=== PATIENT | male | born 1955 | race Caucasian/White ===

== ENCOUNTER 2016-12-13 02:35 | Emergency (ER) | payer MEDICAID ==
[~2016-12-13] VITALS: Ht 175.3 cm; Wt 83.0 kg
[~2016-12-13 02:35] MED LIST: ACID1TAB7 PO; DAPT500V6 IV; DOCU-30 PO; DOXY100T PO; FOLI-17 PO; HYDR-3307 PO; LIBRIUM; LOSA25TA2 PO; METO25TA35 PO; METR500T PO; MULT-484 PO; NICO1PAT4 TD; OXYC10TA32 PO; OXYC5TAB3 PO; PANT40TA5 PO; SODI1TAB PO; THIA100T6 PO; VENL37.58 PO; VENL75CA PO
[2016-12-13 02:37] VITALS: BP 133/83
== END 2016-12-13 03:11 | disposition home or self-care (01) ==
LOC: ED 03:05
DX: L03.115 Cellulitis of right lower limb (principal); F10.220 Alcohol dependence with intoxication, uncomplicated; Y90.9 Presence of alcohol in blood, level not specified; F10.20 Alcohol dependence, uncomplicated; I10 Essential (primary) hypertension
CPT/HCPCS: 99283

== ENCOUNTER 2017-01-19 07:29 | Inpatient (IN) | payer MEDICAID ==
[~2017-01-19] VITALS: Ht 177.8 cm; Wt 77.7 kg
[2017-01-19] MEDS ORDERED: PROPOFOL 10 MG/ML, 100ML IV ONE (12:00)
[2017-01-19] MEDS ORDERED: ETOMIDATE 40 MG/20 ML ONE (12:00)
[2017-01-19] MEDS ORDERED: SUCCINYLCHOLINE 20 MG/ML, 10ML ONE (12:00)
[2017-01-19 15:43] LABS: ASPARTATE AMINO TRANSFERASE 32 U/L (15-37); BLOOD UREA NITROGEN 13 mg/dL (7-18)
[2017-01-19 15:50] LABS: ACETAMINOPHEN < 2 mcg/mL (10-30)
[2017-01-19] MEDS ORDERED: LORazepam 2 MG/ML, 1ML IVPush PRN (17:30)
[2017-01-19] MEDS ORDERED: POLYETHYLENE GLYCOL 17 GM PACKET PO PRN (17:30)
[2017-01-19] MEDS ORDERED: FENTANYL PF 100 MCG/2ML ONE (17:55)
[2017-01-19] MEDS ORDERED: SUCCINYLCHOLINE 20 MG/ML, 10ML IVPush ONE (18:00)
[2017-01-19] MEDS ORDERED: ETOMIDATE 20 MG/10 ML IVPush ONE (18:00)
[2017-01-19] MEDS ORDERED: SODIUM CHLORIDE 0.9%, 500ML IVBOLUS ONE (18:00)
[2017-01-19] MEDS ORDERED: FENTANYL PF 100 MCG/2ML IVPush ONE (18:00)
[2017-01-19] MEDS ORDERED: MANNITOL PMX 20% 500 ML ONE (18:15)
[2017-01-19] MEDS ORDERED: BACITRACIN 50,000 UNIT ONE (18:15)
[2017-01-19] MEDS ORDERED: BUPIVACAINE/PF-EPI 0.5% 1:200K ONE (18:15)
[2017-01-19] MEDS ORDERED: THROMBIN 20,000 UNIT VIAL TP ONE (18:15)
[2017-01-19] MEDS: SODIUM CHLORIDE 0.9% 1,000 ML IV SCH ×2 (18:30→22:07)
[2017-01-19] MEDS ORDERED: SENNOSIDES 8.8 MG/5 ML ORAL SOL NG PRN (18:30)
[2017-01-19] MEDS ORDERED: BISACODYL 10 MG SUPP PR PRN (18:30)
[2017-01-19] MEDS ORDERED: LACTULOSE 20 GM/30 ML UDC NG PRN (18:30)
[2017-01-19] MEDS ORDERED: LIDOCAINE-MPF 1%, 2ML ENDO PRN (18:30)
[2017-01-19] MEDS ORDERED: PHARMACY MAY ADJ FOR RENAL FX MC SCH (18:30)
[2017-01-19] MEDS ORDERED: SENNA/DOCUSATE TABLET NG PRN (18:30)
[2017-01-19] MEDS ORDERED: FENTANYL PF 250 MCG/5ML ONE (18:31)
[2017-01-19] MEDS ORDERED: MIDAZOLAM 1 MG/ML, 2ML ONE (18:31)
[2017-01-19 18:34] LABS: IS PT STATUS REG ER OR PRE ER? YES
[2017-01-19] MEDS ORDERED: CEFAZOLIN 1,000 MG ONE (18:47)
[2017-01-19] MEDS ORDERED: PHENYLEPHRINE 10 MG/ML ONE (18:47)
[2017-01-19] MEDS ORDERED: ROCURONIUM 10 MG/ML ONE (18:47)
[2017-01-19] MEDS ORDERED: EPHEDRINE 50 MG/ML, 1ML ONE (18:47)
[2017-01-19] MEDS ORDERED: ESMOLOL 100 MG/10 ML ONE (18:47)
[2017-01-19] MEDS ORDERED: PROPOFOL 10 MG/ML, 20ML ONE (18:47)
[2017-01-19] MEDS: PROPOFOL 100 ML IV SCH ×2 (19:05→19:06)
[2017-01-19] MEDS: FENTANYL PF 100 MCG/2ML IVPush PRN (21:53)
[2017-01-19] MEDS: FAMOTIDINE 20 MG/2 ML IV SCH (21:55)
[2017-01-19] MEDS: ALBUTEROL/IPRATROPIUM 2.5MG/0.5MG, 3 ML INLINE SCH (22:21)
[2017-01-19 22:33] LABS: ABG COLLECTION SITE ARTERIAL LINE
[2017-01-20] MEDS: POTASSIUM CHLORIDE 20 MEQ, MAGNESIUM SULFATE 2 GM, THIAMINE 100 MG, MVI ADULT 10 ML, FO... IV SCH ×2 (00:13→22:30)
[2017-01-20] MEDS: CEFAZOLIN PMX 2GM/50ML 50 ML IVPB SCH ×3 (00:14→16:20)
[2017-01-20] MEDS: PROPOFOL 100 ML IV PRN ×4 (00:35→19:00)
[2017-01-20] MEDS: FENTANYL PF 100 MCG/2ML IVPush PRN ×4 (00:41→07:32)
[2017-01-20 00:53] LABS: IS PT STATUS REG ER OR PRE ER? NO
[2017-01-20] MEDS: SODIUM CHLORIDE 0.9% 1,000 ML IV SCH ×4 (01:10→22:34)
[2017-01-20] MEDS: ALBUTEROL/IPRATROPIUM 2.5MG/0.5MG, 3 ML INLINE SCH ×6 (01:55→21:48)
[2017-01-20 02:07] VITALS: BP 173/72
[2017-01-20 03:53] LABS: ABG COLLECTION SITE ARTERIAL LINE
[2017-01-20 04:00] VITALS: BP 117/57
[2017-01-20 04:08] LABS: ASPARTATE AMINO TRANSFERASE 27 U/L (15-37); BLOOD UREA NITROGEN 15 mg/dL (7-18)
[2017-01-20] MEDS: FAMOTIDINE 20 MG/2 ML IV SCH ×2 (06:21→18:44)
[2017-01-20] MEDS ORDERED: MAGNESIUM SULFATE PMX 4GM/100M 100 ML IV ONE (07:00)
[2017-01-20] MEDS ORDERED: PANTOPRAZOLE 40 MG IV IVPush SCH (07:30)
[2017-01-20] MEDS ORDERED: DIAZEPAM 5 MG/ML, 2ML IVPush PRN (08:30)
[2017-01-20] MEDS: ENALAPRILAT 1.25 MG/ML, 2ML IVPush PRN (08:39)
[2017-01-20] MEDS: SENNA/DOCUSATE TABLET PO SCH (09:00)
[2017-01-20] MEDS: LEVETIRACETAM 500 MG in SODIUM CHLORIDE 0.9% 100 ML IV SCH ×2 (09:26→21:33)
[2017-01-20] MEDS: FENTANYL PF 2,500 MCG in SODIUM CHLORIDE 0.9% 200 ML IV PRN (11:10)
[2017-01-20] MEDS: DIAZEPAM 5 MG/ML, 2ML IVPush SCH ×3 (14:50→21:34)
[2017-01-20] MEDS: QUETIAPINE 25MG TABLET PO SCH ×2 (16:19→21:33)
[2017-01-21] MEDS: ALBUTEROL/IPRATROPIUM 2.5MG/0.5MG, 3 ML INLINE SCH ×6 (01:52→21:30)
[2017-01-21] MEDS: DIAZEPAM 5 MG/ML, 2ML IVPush SCH ×5 (03:07→23:15)
[2017-01-21 04:10] VITALS: BP 126/72
[2017-01-21 04:17] LABS: ABG COLLECTION SITE NOT DOCUMENTED
[2017-01-21 04:30] LABS: BLOOD UREA NITROGEN 15 mg/dL (7-18)
[2017-01-21] MEDS: FAMOTIDINE 20 MG/2 ML IV SCH ×2 (05:59→18:18)
[2017-01-21] MEDS: SODIUM CHLORIDE 0.9% 1,000 ML IV SCH ×2 (07:52→18:18)
[2017-01-21] MEDS: AMPICILLIN/SULBACTAM 3 GM in SODIUM CHLORIDE 0.9% 100 ML IV SCH ×3 (08:40→20:39)
[2017-01-21] MEDS: LOSARTAN 25MG TABLET PO SCH ×2 (08:40→20:41)
[2017-01-21] MEDS: METOPROLOL TARTRATE 25 MG TABLET PO SCH (08:40)
[2017-01-21] MEDS: SENNA/DOCUSATE TABLET PO SCH (08:40)
[2017-01-21] MEDS: QUETIAPINE 25MG TABLET PO SCH ×3 (08:40→20:41)
[2017-01-21] MEDS: LEVETIRACETAM 500 MG in SODIUM CHLORIDE 0.9% 100 ML IV SCH ×2 (09:39→22:41)
[2017-01-21] MEDS: PROPOFOL 100 ML IV PRN ×2 (14:31→22:42)
[2017-01-21] MEDS: POTASSIUM CHLORIDE 20 MEQ, MAGNESIUM SULFATE 2 GM, THIAMINE 100 MG, MVI ADULT 10 ML, FO... IV SCH (20:41)
[2017-01-22] MEDS: ALBUTEROL/IPRATROPIUM 2.5MG/0.5MG, 3 ML INLINE SCH ×6 (01:35→21:44)
[2017-01-22] MEDS: AMPICILLIN/SULBACTAM 3 GM in SODIUM CHLORIDE 0.9% 100 ML IV SCH ×4 (02:17→21:14)
[2017-01-22] MEDS: SODIUM CHLORIDE 0.9% 1,000 ML IV SCH ×3 (02:21→21:14)
[2017-01-22 02:57] LABS: ABG COLLECTION SITE RIGHT RADIAL
[2017-01-22 02:58] LABS: COLLATERAL CIRCULATION TESTING NORMAL
[2017-01-22 03:09] LABS: BLOOD UREA NITROGEN 10 mg/dL (7-18)
[2017-01-22 04:00] VITALS: BP 138/67
[2017-01-22] MEDS: DIAZEPAM 5 MG/ML, 2ML IVPush SCH ×5 (04:18→22:37)
[2017-01-22] MEDS: PROPOFOL 100 ML IV PRN ×3 (05:18→21:50)
[2017-01-22] MEDS: FAMOTIDINE 20 MG/2 ML IV SCH ×2 (05:18→18:24)
[2017-01-22] MEDS ORDERED: POTASSIUM CHLORIDE 10% 40 MEQ/30 ML UDC PO ONE (07:00)
[2017-01-22] MEDS: LEVETIRACETAM 500 MG in SODIUM CHLORIDE 0.9% 100 ML IV SCH ×2 (10:18→21:50)
[2017-01-22] MEDS: METOPROLOL TARTRATE 25 MG TABLET PO SCH (10:18)
[2017-01-22] MEDS: LOSARTAN 25MG TABLET PO SCH ×2 (10:19→21:15)
[2017-01-22] MEDS: SENNA/DOCUSATE TABLET PO SCH (10:19)
[2017-01-22] MEDS: QUETIAPINE 25MG TABLET PO SCH ×3 (10:19→21:18)
[2017-01-22] MEDS: FENTANYL PF 2,500 MCG in SODIUM CHLORIDE 0.9% 200 ML IV PRN (21:14)
[2017-01-22] MEDS: POTASSIUM CHLORIDE 20 MEQ, MAGNESIUM SULFATE 2 GM, THIAMINE 100 MG, MVI ADULT 10 ML, FO... IV SCH (22:37)
[2017-01-23] MEDS: ALBUTEROL/IPRATROPIUM 2.5MG/0.5MG, 3 ML INLINE SCH ×7 (01:42→21:50)
[2017-01-23] MEDS: DIAZEPAM 5 MG/ML, 2ML IVPush SCH ×6 (02:00→23:15)
[2017-01-23] MEDS: SODIUM CHLORIDE 0.9% 1,000 ML IV SCH ×3 (03:00→23:00)
[2017-01-23] MEDS: AMPICILLIN/SULBACTAM 3 GM in SODIUM CHLORIDE 0.9% 100 ML IV SCH ×4 (03:07→21:43)
[2017-01-23 04:31] LABS: ABG COLLECTION SITE RIGHT BRACHIAL
[2017-01-23 04:35] VITALS: BP 114/64
[2017-01-23 04:48] LABS: BLOOD UREA NITROGEN 8 mg/dL (7-18)
[2017-01-23] MEDS: FAMOTIDINE 20 MG/2 ML IV SCH ×2 (06:24→21:43)
[2017-01-23] MEDS ORDERED: MAGNESIUM SULFATE PMX 2GM/50ML 50 ML IV ONE (07:00)
[2017-01-23] MEDS ORDERED: POTASSIUM PHOSPHATE 44 MEQ in SODIUM CHLORIDE 0.9% 500 ML IV ONE (08:30)
[2017-01-23] MEDS: POTASSIUM CHLORIDE 20 MEQ TAB.ER.PRT PO SCH ×2 (09:00→23:15)
[2017-01-23] MEDS: METOPROLOL TARTRATE 25 MG TABLET PO SCH (10:02)
[2017-01-23] MEDS: QUETIAPINE 25MG TABLET PO SCH ×3 (10:02→21:44)
[2017-01-23] MEDS: SENNA/DOCUSATE TABLET PO SCH (10:02)
[2017-01-23] MEDS: LOSARTAN 25MG TABLET PO SCH ×2 (10:02→21:43)
[2017-01-23] MEDS: LEVETIRACETAM 500 MG in SODIUM CHLORIDE 0.9% 100 ML IV SCH ×2 (10:03→21:42)
[2017-01-23] MEDS: PROPOFOL 100 ML IV PRN ×2 (10:21→18:01)
[2017-01-23] MEDS: ENALAPRILAT 1.25 MG/ML, 2ML IVPush PRN (13:07)
[2017-01-23] MEDS ORDERED: FUROSEMIDE 20 MG/2 ML IV ONE (14:00)
[2017-01-23] MEDS: POTASSIUM CHLORIDE 20 MEQ, MAGNESIUM SULFATE 2 GM, THIAMINE 100 MG, MVI ADULT 10 ML, FO... IV SCH (23:15)
[2017-01-24] MEDS: ALBUTEROL/IPRATROPIUM 2.5MG/0.5MG, 3 ML INLINE SCH ×2 (02:31→10:30)
[2017-01-24] MEDS: AMPICILLIN/SULBACTAM 3 GM in SODIUM CHLORIDE 0.9% 100 ML IV SCH ×4 (03:28→19:51)
[2017-01-24] MEDS: DIAZEPAM 5 MG/ML, 2ML IVPush SCH ×4 (03:29→17:32)
[2017-01-24 04:58] VITALS: BP 114/59
[2017-01-24 05:07] LABS: BLOOD UREA NITROGEN 11 mg/dL (7-18)
[2017-01-24 05:18] LABS: ABG COLLECTION SITE RIGHT RADIAL; COLLATERAL CIRCULATION TESTING NORMAL
[2017-01-24] MEDS: SODIUM CHLORIDE 0.9% 1,000 ML IV SCH (06:04)
[2017-01-24] MEDS ORDERED: SODIUM CHLORIDE 0.9% 1,000 ML IV SCH (08:30)
[2017-01-24] MEDS ORDERED: POTASSIUM CHLORIDE 20 MEQ TAB.ER.PRT PO SCH (09:00)
[2017-01-24] MEDS: POTASSIUM CHLORIDE 20 MEQ PACKET PO SCH ×2 (09:20→21:00)
[2017-01-24] MEDS: hydrALAzine 20 MG/ML, 1ML IV PRN ×3 (09:20→18:43)
[2017-01-24] MEDS: FAMOTIDINE 20 MG/2 ML IV SCH ×2 (09:20→21:07)
[2017-01-24] MEDS: LEVETIRACETAM 500 MG in SODIUM CHLORIDE 0.9% 100 ML IV SCH ×2 (09:23→21:07)
[2017-01-24] MEDS: LOSARTAN 25MG TABLET PO SCH ×2 (09:23→21:00)
[2017-01-24] MEDS: QUETIAPINE 25MG TABLET PO SCH ×3 (09:23→21:00)
[2017-01-24] MEDS: METOPROLOL TARTRATE 25 MG TABLET PO SCH (09:23)
[2017-01-24] MEDS: SENNA/DOCUSATE TABLET PO SCH (09:23)
[2017-01-24] MEDS: ENALAPRILAT 1.25 MG/ML, 2ML IVPush PRN ×3 (11:20→19:51)
[2017-01-24] MEDS ORDERED: ALBUTEROL/IPRATROPIUM 2.5MG/0.5MG, 3 ML NPPB PRN (11:30)
[2017-01-24] MEDS: MORPHINE SULFATE 4 MG/ML, 1ML IVPush PRN ×2 (13:14→15:25)
[2017-01-24] MEDS: ALBUTEROL/IPRATROPIUM 2.5MG/0.5MG, 3 ML NPPB SCH ×3 (14:20→21:47)
[2017-01-24] MEDS ORDERED: FUROSEMIDE 20 MG/2 ML ONE (15:16)
[2017-01-24] MEDS ORDERED: FUROSEMIDE 20 MG/2 ML IV ONE (15:30)
[2017-01-24] MEDS ORDERED: METOPROLOL 1 MG/ML, 5ML ONE (20:34)
[2017-01-24] MEDS ORDERED: METOPROLOL 1 MG/ML, 5ML IVPush STA (20:39)
[2017-01-24] MEDS: POTASSIUM CHLORIDE 20 MEQ, MAGNESIUM SULFATE 2 GM, THIAMINE 100 MG, MVI ADULT 10 ML, FO... IV SCH (23:02)
[2017-01-25] MEDS: DIAZEPAM 5 MG/ML, 2ML IVPush SCH ×2 (00:49→05:22)
[2017-01-25] MEDS: AMPICILLIN/SULBACTAM 3 GM in SODIUM CHLORIDE 0.9% 100 ML IV SCH ×4 (02:16→19:32)
[2017-01-25] MEDS: FENTANYL PF 100 MCG/2ML IVPush PRN ×2 (02:16→09:35)
[2017-01-25] MEDS: ALBUTEROL/IPRATROPIUM 2.5MG/0.5MG, 3 ML NPPB SCH ×5 (02:30→20:00)
[2017-01-25 04:25] LABS: ABG COLLECTION SITE RIGHT RADIAL; COLLATERAL CIRCULATION TESTING NORMAL
[2017-01-25 04:26] VITALS: BP 160/95
[2017-01-25 04:36] LABS: BLOOD UREA NITROGEN 11 mg/dL (7-18)
[2017-01-25 04:55] LABS: DIFF TOTAL CELLS COUNTED 100 CELL DIFF
[2017-01-25 04:57] LABS: VERIFY COUNTS? YES
[2017-01-25 04:58] LABS: ANISOCYTOSIS 1+
[2017-01-25] MEDS: POTASSIUM CHLORIDE 10% 40 MEQ/30 ML UDC PO SCH ×2 (09:00→21:00)
[2017-01-25] MEDS: METOPROLOL TARTRATE 25 MG TABLET PO SCH (09:00)
[2017-01-25] MEDS: LOSARTAN 25MG TABLET PO SCH ×2 (09:00→21:00)
[2017-01-25] MEDS: QUETIAPINE 25MG TABLET PO SCH ×3 (09:00→21:00)
[2017-01-25] MEDS: SENNA/DOCUSATE TABLET PO SCH (09:00)
[2017-01-25] MEDS: LEVETIRACETAM 500 MG in SODIUM CHLORIDE 0.9% 100 ML IV SCH ×2 (09:24→21:08)
[2017-01-25] MEDS: hydrALAzine 20 MG/ML, 1ML IV PRN (09:54)
[2017-01-25] MEDS: ENALAPRILAT 1.25 MG/ML, 2ML IVPush PRN (11:49)
[2017-01-25] MEDS ORDERED: MIDAZOLAM 1 MG/ML, 2ML ONE (12:23)
[2017-01-25] MEDS ORDERED: MIDAZOLAM 1 MG/ML, 2ML IVPush ONE (12:30)
[2017-01-25] MEDS: FAMOTIDINE 20 MG/2 ML IV SCH ×2 (13:44→21:08)
[2017-01-25] MEDS: POTASSIUM CHLORIDE 20 MEQ, MAGNESIUM SULFATE 2 GM, THIAMINE 100 MG, MVI ADULT 10 ML, FO... IV SCH (22:49)
[2017-01-26] MEDS: AMPICILLIN/SULBACTAM 3 GM in SODIUM CHLORIDE 0.9% 100 ML IV SCH ×4 (02:21→19:34)
[2017-01-26] MEDS: FENTANYL PF 100 MCG/2ML IVPush PRN (02:41)
[2017-01-26 04:51] VITALS: BP 174/94
[2017-01-26 05:16] LABS: BLOOD UREA NITROGEN 19 mg/dL (7-18)
[2017-01-26] MEDS: ALBUTEROL/IPRATROPIUM 2.5MG/0.5MG, 3 ML NPPB SCH ×4 (06:50→19:43)
[2017-01-26] MEDS: LOSARTAN 25MG TABLET PO SCH ×2 (09:00→20:47)
[2017-01-26] MEDS: SENNA/DOCUSATE TABLET PO SCH (09:00)
[2017-01-26] MEDS: METOPROLOL TARTRATE 25 MG TABLET PO SCH (09:00)
[2017-01-26] MEDS: QUETIAPINE 25MG TABLET PO SCH ×3 (09:00→20:47)
[2017-01-26] MEDS: FAMOTIDINE 20 MG/2 ML IV SCH ×2 (09:31→20:46)
[2017-01-26] MEDS: LEVETIRACETAM 500 MG in SODIUM CHLORIDE 0.9% 100 ML IV SCH ×2 (09:31→20:46)
[2017-01-26] MEDS: hydrALAzine 20 MG/ML, 1ML IV PRN (18:21)
[2017-01-26] MEDS: POTASSIUM CHLORIDE 20 MEQ, MAGNESIUM SULFATE 2 GM, THIAMINE 100 MG, MVI ADULT 10 ML, FO... IV SCH (23:07)
[2017-01-27] MEDS: AMPICILLIN/SULBACTAM 3 GM in SODIUM CHLORIDE 0.9% 100 ML IV SCH ×4 (01:46→21:18)
[2017-01-27] MEDS: FENTANYL PF 100 MCG/2ML IVPush PRN (02:29)
[2017-01-27] MEDS: ENALAPRILAT 1.25 MG/ML, 2ML IVPush PRN ×4 (04:06→21:17)
[2017-01-27 04:56] LABS: ASPARTATE AMINO TRANSFERASE 104 U/L (15-37); BLOOD UREA NITROGEN 20 mg/dL (7-18)
[2017-01-27 05:46] VITALS: BP 154/72
[2017-01-27] MEDS: hydrALAzine 20 MG/ML, 1ML IV PRN ×2 (06:05→21:24)
[2017-01-27] MEDS: ALBUTEROL/IPRATROPIUM 2.5MG/0.5MG, 3 ML NPPB SCH ×4 (07:00→20:00)
[2017-01-27] MEDS: QUETIAPINE 25MG TABLET PO SCH ×3 (09:00→20:37)
[2017-01-27] MEDS: LOSARTAN 25MG TABLET PO SCH ×2 (09:00→20:37)
[2017-01-27] MEDS: SENNA/DOCUSATE TABLET PO SCH (09:00)
[2017-01-27] MEDS: METOPROLOL TARTRATE 25 MG TABLET PO SCH (09:00)
[2017-01-27] MEDS: FAMOTIDINE 20 MG/2 ML IV SCH ×2 (09:55→21:17)
[2017-01-27] MEDS: LEVETIRACETAM 500 MG in SODIUM CHLORIDE 0.9% 100 ML IV SCH ×2 (09:55→21:18)
[2017-01-27] MEDS ORDERED: BUPIVACAINE/PF-EPI 0.5% 1:200K ONE (14:31)
[2017-01-27] MEDS ORDERED: FENTANYL PF 250 MCG/5ML ONE (15:01)
[2017-01-27] MEDS ORDERED: LABETALOL 5MG/ML, 20ML IV PRN (15:30)
[2017-01-27] MEDS ORDERED: FENTANYL PF 100 MCG/2ML IV PRN (15:30)
[2017-01-27] MEDS ORDERED: HYDROmorphone 1 MG/ML, 1ML IV PRN (15:30)
[2017-01-27] MEDS ORDERED: hydrALAzine 20 MG/ML, 1ML IV PRN (15:30)
[2017-01-27] MEDS ORDERED: OXYcodone 5 MG/5 ML ORAL.SOL UDC PO PRN (15:30)
[2017-01-27] MEDS ORDERED: ONDANSETRON 2MG/ML, 2ML IVPush PRN (15:30)
[2017-01-27] MEDS ORDERED: PROMETHAZINE 25 MG/ML, 1ML IV PRN (15:30)
[2017-01-27] MEDS: POTASSIUM CHLORIDE 20 MEQ, MAGNESIUM SULFATE 2 GM, THIAMINE 100 MG, MVI ADULT 10 ML, FO... IV SCH (21:00)
[2017-01-28] MEDS: ENALAPRILAT 1.25 MG/ML, 2ML IVPush PRN (02:22)
[2017-01-28] MEDS: AMPICILLIN/SULBACTAM 3 GM in SODIUM CHLORIDE 0.9% 100 ML IV SCH ×4 (02:22→20:06)
[2017-01-28] MEDS: hydrALAzine 20 MG/ML, 1ML IV PRN ×3 (02:47→18:42)
[2017-01-28 06:50] LABS: ASPARTATE AMINO TRANSFERASE 57 U/L (15-37); BLOOD UREA NITROGEN 17 mg/dL (7-18)
[2017-01-28] MEDS: ALBUTEROL/IPRATROPIUM 2.5MG/0.5MG, 3 ML NPPB SCH ×4 (07:50→21:53)
[2017-01-28] MEDS: METOPROLOL TARTRATE 25 MG TABLET PO SCH (09:00)
[2017-01-28] MEDS: LOSARTAN 25MG TABLET PO SCH ×2 (09:00→20:20)
[2017-01-28] MEDS: QUETIAPINE 25MG TABLET PO SCH ×3 (09:00→20:21)
[2017-01-28] MEDS: SENNA/DOCUSATE TABLET PO SCH (09:00)
[2017-01-28] MEDS: FAMOTIDINE 20 MG/2 ML IV SCH ×2 (09:58→21:09)
[2017-01-28] MEDS: LEVETIRACETAM 500 MG in SODIUM CHLORIDE 0.9% 100 ML IV SCH ×2 (09:58→20:54)
[2017-01-28] MEDS: SODIUM BICARBONATE 4.2%, 5ML NPPB SCH ×3 (12:08→21:53)
[2017-01-28] MEDS: FENTANYL PF 100 MCG/2ML IVPush PRN (20:20)
[2017-01-28] MEDS: POTASSIUM CHLORIDE 20 MEQ, MAGNESIUM SULFATE 2 GM, THIAMINE 100 MG, MVI ADULT 10 ML, FO... IV SCH (21:49)
[2017-01-29] MEDS: FENTANYL PF 100 MCG/2ML IVPush PRN (01:05)
[2017-01-29] MEDS: AMPICILLIN/SULBACTAM 3 GM in SODIUM CHLORIDE 0.9% 100 ML IV SCH ×4 (03:26→20:43)
[2017-01-29 04:00] VITALS: BP 164/93
[2017-01-29] MEDS: ENALAPRILAT 1.25 MG/ML, 2ML IVPush PRN (04:06)
[2017-01-29 06:11] LABS: BLOOD UREA NITROGEN 17 mg/dL (7-18)
[2017-01-29] MEDS: SODIUM BICARBONATE 4.2%, 5ML NPPB SCH ×4 (06:50→19:58)
[2017-01-29] MEDS: ALBUTEROL/IPRATROPIUM 2.5MG/0.5MG, 3 ML NPPB SCH ×4 (06:50→19:58)
[2017-01-29] MEDS: METOPROLOL TARTRATE 25 MG TABLET PO SCH ×2 (09:26→20:44)
[2017-01-29] MEDS: QUETIAPINE 25MG TABLET PO SCH ×3 (09:26→20:43)
[2017-01-29] MEDS: LOSARTAN 25MG TABLET PO SCH ×2 (09:26→20:43)
[2017-01-29] MEDS: SENNA/DOCUSATE TABLET PO SCH (09:26)
[2017-01-29] MEDS: FAMOTIDINE 20 MG/2 ML IV SCH ×2 (09:27→20:43)
[2017-01-29] MEDS: LEVETIRACETAM 500 MG in SODIUM CHLORIDE 0.9% 100 ML IV SCH (09:27)
[2017-01-29] MEDS: hydrALAzine 20 MG/ML, 1ML IV PRN (12:08)
[2017-01-29] MEDS: OXYcodone IR 5MG TABLET PO PRN (14:39)
[2017-01-29] MEDS: THIAMINE 100MG TABLET PO SCH (16:13)
[2017-01-29] MEDS: FOLIC ACID 1 MG TABLET PO SCH (16:13)
[2017-01-29] MEDS: HEPARIN 5,000 UNITS/ML, 1ML SQ SCH ×2 (16:14→20:59)
[2017-01-29] MEDS: LEVETIRACETAM 500 MG TABLET PO SCH (20:44)
[2017-01-30] MEDS: AMPICILLIN/SULBACTAM 3 GM in SODIUM CHLORIDE 0.9% 100 ML IV SCH ×4 (02:22→21:01)
[2017-01-30 04:09] VITALS: BP 145/99
[2017-01-30 04:38] LABS: BLOOD UREA NITROGEN 20 mg/dL (7-18)
[2017-01-30] MEDS: HEPARIN 5,000 UNITS/ML, 1ML SQ SCH ×3 (05:43→22:22)
[2017-01-30] MEDS: OXYcodone IR 5MG TABLET PO PRN ×2 (06:31→09:08)
[2017-01-30] MEDS ORDERED: POTASSIUM CHLORIDE 20 MEQ TAB.ER.PRT PO ONE (07:00)
[2017-01-30] MEDS: SODIUM BICARBONATE 4.2%, 5ML NPPB SCH ×4 (07:10→20:00)
[2017-01-30] MEDS: ALBUTEROL/IPRATROPIUM 2.5MG/0.5MG, 3 ML NPPB SCH ×4 (07:10→20:00)
[2017-01-30] MEDS: FOLIC ACID 1 MG TABLET PO SCH (09:08)
[2017-01-30] MEDS: QUETIAPINE 25MG TABLET PO SCH ×3 (09:08→21:02)
[2017-01-30] MEDS: LEVETIRACETAM 500 MG TABLET PO SCH ×2 (09:08→21:01)
[2017-01-30] MEDS: THIAMINE 100MG TABLET PO SCH (09:08)
[2017-01-30] MEDS: LOSARTAN 25MG TABLET PO SCH ×2 (09:09→21:02)
[2017-01-30] MEDS: METOPROLOL TARTRATE 25 MG TABLET PO SCH ×2 (09:09→21:02)
[2017-01-30] MEDS: SENNA/DOCUSATE TABLET PO SCH (09:09)
[2017-01-30] MEDS: FAMOTIDINE 20 MG/2 ML IV SCH ×2 (09:10→21:02)
[2017-01-30 09:20] VITALS: BP 154/77
[2017-01-30 11:35] VITALS: BP 121/67
[2017-01-30 13:30] VITALS: BP 133/71
[2017-01-30] MEDS: BACLOFEN 10 MG TABLET PO SCH ×3 (14:56→21:02)
[2017-01-30] MEDS: NYSTATIN 500,000 UNITS/5 ML UDC PO SCH ×2 (14:56→21:01)
[2017-01-30 19:51] VITALS: BP 114/72
[2017-01-31 01:44] VITALS: BP 150/93
[2017-01-31] MEDS: AMPICILLIN/SULBACTAM 3 GM in SODIUM CHLORIDE 0.9% 100 ML IV SCH (03:30)
[2017-01-31 05:45] LABS: BLOOD UREA NITROGEN 19 mg/dL (7-18)
[2017-01-31] MEDS: NYSTATIN 500,000 UNITS/5 ML UDC PO SCH ×4 (05:48→21:55)
[2017-01-31] MEDS: HEPARIN 5,000 UNITS/ML, 1ML SQ SCH ×2 (05:49→16:00)
[2017-01-31] MEDS: OXYcodone IR 5MG TABLET PO PRN ×2 (05:49→12:13)
[2017-01-31 06:45] VITALS: BP 179/84
[2017-01-31] MEDS: ALBUTEROL/IPRATROPIUM 2.5MG/0.5MG, 3 ML NPPB SCH ×4 (07:00→19:00)
[2017-01-31] MEDS: FAMOTIDINE 20 MG/2 ML IV SCH ×2 (10:21→21:55)
[2017-01-31] MEDS: SENNA/DOCUSATE TABLET PO SCH (10:21)
[2017-01-31] MEDS: FOLIC ACID 1 MG TABLET PO SCH (10:21)
[2017-01-31] MEDS: QUETIAPINE 25MG TABLET PO SCH ×3 (10:21→21:54)
[2017-01-31] MEDS: THIAMINE 100MG TABLET PO SCH (10:21)
[2017-01-31] MEDS: LOSARTAN 25MG TABLET PO SCH ×2 (10:21→21:55)
[2017-01-31] MEDS: METOPROLOL TARTRATE 25 MG TABLET PO SCH ×2 (10:21→21:55)
[2017-01-31] MEDS: BACLOFEN 10 MG TABLET PO SCH ×3 (10:21→21:55)
[2017-01-31] MEDS: LEVETIRACETAM 500 MG TABLET PO SCH ×2 (10:21→21:54)
[2017-01-31] MEDS: SODIUM BICARBONATE 4.2%, 5ML NPPB SCH ×4 (11:00→19:00)
[2017-01-31 12:26] VITALS: BP 147/82
[2017-01-31] MEDS ORDERED: PROPOFOL 10 MG/ML, 20ML ONE (14:49)
[2017-01-31] MEDS ORDERED: GLYCOPYRROLATE 0.2MG/1ML ONE (14:49)
[2017-01-31] MEDS ORDERED: NEOSTIGMINE 1 MG/ML, 10ML ONE (14:49)
[2017-01-31] MEDS ORDERED: ROCURONIUM 10 MG/ML ONE (14:49)
[2017-01-31] MEDS ORDERED: ONDANSETRON 2MG/ML, 2ML ONE (14:49)
[2017-01-31 17:08] VITALS: BP 133/73
[2017-01-31 21:53] VITALS: BP 152/78
[2017-02-01 00:21] VITALS: BP 116/60
[2017-02-01] MEDS: HEPARIN 5,000 UNITS/ML, 1ML SQ SCH ×3 (00:21→20:51)
[2017-02-01 02:45] VITALS: BP 144/79
[2017-02-01] MEDS: NYSTATIN 500,000 UNITS/5 ML UDC PO SCH ×4 (04:42→20:51)
[2017-02-01] MEDS: ALBUTEROL/IPRATROPIUM 2.5MG/0.5MG, 3 ML NPPB SCH ×4 (06:55→19:59)
[2017-02-01 07:50] LABS: BLOOD UREA NITROGEN 18 mg/dL (7-18)
[2017-02-01 07:53] VITALS: BP 158/74
[2017-02-01] MEDS: METOPROLOL TARTRATE 25 MG TABLET PO SCH ×2 (08:52→20:51)
[2017-02-01] MEDS: SENNA/DOCUSATE TABLET PO SCH (08:52)
[2017-02-01] MEDS: BACLOFEN 10 MG TABLET PO SCH ×3 (08:52→20:51)
[2017-02-01] MEDS: QUETIAPINE 25MG TABLET PO SCH ×3 (08:52→20:51)
[2017-02-01] MEDS: LEVETIRACETAM 500 MG TABLET PO SCH ×2 (08:52→20:51)
[2017-02-01] MEDS: FOLIC ACID 1 MG TABLET PO SCH (08:52)
[2017-02-01] MEDS: LOSARTAN 25MG TABLET PO SCH ×2 (08:52→20:51)
[2017-02-01] MEDS: THIAMINE 100MG TABLET PO SCH (08:53)
[2017-02-01] MEDS: FAMOTIDINE 40 MG/5 ML ORAL SUSP PO SCH ×2 (12:51→21:38)
[2017-02-01 14:00] VITALS: BP 149/78
[2017-02-01 20:49] VITALS: BP 123/74
[2017-02-01] MEDS: LOSARTAN 50MG TABLET PO SCH (21:00)
[2017-02-02] MEDS: OXYcodone IR 5MG TABLET PO PRN ×3 (01:39→17:52)
[2017-02-02 01:54] VITALS: BP 121/71
[2017-02-02] MEDS: NYSTATIN 500,000 UNITS/5 ML UDC PO SCH ×4 (05:48→20:56)
[2017-02-02] MEDS: HEPARIN 5,000 UNITS/ML, 1ML SQ SCH ×2 (05:48→17:14)
[2017-02-02 06:27] LABS: BLOOD UREA NITROGEN 19 mg/dL (7-18)
[2017-02-02 06:33] LABS: ASPARTATE AMINO TRANSFERASE 54 U/L (15-37)
[2017-02-02] MEDS: ALBUTEROL/IPRATROPIUM 2.5MG/0.5MG, 3 ML NPPB SCH ×4 (06:42→22:35)
[2017-02-02 08:00] VITALS: BP 114/69
[2017-02-02] MEDS: FAMOTIDINE 40 MG/5 ML ORAL SUSP PO SCH ×2 (08:39→20:56)
[2017-02-02] MEDS: THIAMINE 100MG TABLET PO SCH (08:40)
[2017-02-02] MEDS: BACLOFEN 10 MG TABLET PO SCH ×3 (08:40→20:56)
[2017-02-02] MEDS: LEVETIRACETAM 500 MG TABLET PO SCH (08:40)
[2017-02-02] MEDS: FOLIC ACID 1 MG TABLET PO SCH (08:40)
[2017-02-02] MEDS: LOSARTAN 50MG TABLET PO SCH ×2 (08:40→20:56)
[2017-02-02] MEDS: SENNA/DOCUSATE TABLET PO SCH (08:41)
[2017-02-02] MEDS: METOPROLOL TARTRATE 25 MG TABLET PO SCH ×2 (08:41→20:57)
[2017-02-02] MEDS: QUETIAPINE 25MG TABLET PO SCH ×2 (08:41→17:15)
[2017-02-02 14:00] VITALS: BP 103/76
[2017-02-02 16:02] VITALS: BP 103/76
[2017-02-02 20:53] VITALS: BP 104/68
[2017-02-03] MEDS: QUETIAPINE 25MG TABLET PO SCH ×2 (01:02→08:44)
[2017-02-03 01:24] VITALS: BP 111/68
[2017-02-03] MEDS: HEPARIN 5,000 UNITS/ML, 1ML SQ SCH ×3 (02:31→16:24)
[2017-02-03] MEDS: OXYcodone IR 5MG TABLET PO PRN ×3 (02:31→22:33)
[2017-02-03 05:37] LABS: BLOOD UREA NITROGEN 30 mg/dL (7-18)
[2017-02-03] MEDS: NYSTATIN 500,000 UNITS/5 ML UDC PO SCH ×4 (06:14→21:00)
[2017-02-03 07:33] VITALS: BP 127/81
[2017-02-03] MEDS: ALBUTEROL/IPRATROPIUM 2.5MG/0.5MG, 3 ML NPPB SCH ×3 (07:45→20:40)
[2017-02-03] MEDS: FOLIC ACID 1 MG TABLET PO SCH (08:43)
[2017-02-03] MEDS: LOSARTAN 50MG TABLET PO SCH ×2 (08:43→21:00)
[2017-02-03] MEDS: THIAMINE 100MG TABLET PO SCH (08:43)
[2017-02-03] MEDS: LEVETIRACETAM 500 MG TABLET PO SCH (08:43)
[2017-02-03] MEDS: FAMOTIDINE 40 MG/5 ML ORAL SUSP PO SCH (08:43)
[2017-02-03] MEDS: SENNA/DOCUSATE TABLET PO SCH (08:44)
[2017-02-03] MEDS: BACLOFEN 10 MG TABLET PO SCH ×3 (08:44→20:59)
[2017-02-03] MEDS: METOPROLOL TARTRATE 25 MG TABLET PO SCH ×2 (08:44→20:59)
[2017-02-03 14:00] VITALS: BP 112/70
[2017-02-03 20:00] VITALS: BP 112/71
[2017-02-04] MEDS: HEPARIN 5,000 UNITS/ML, 1ML SQ SCH ×3 (03:21→16:56)
[2017-02-04 03:27] VITALS: BP 105/68
[2017-02-04] MEDS: OXYcodone IR 5MG TABLET PO PRN ×4 (04:38→20:57)
[2017-02-04] MEDS: NYSTATIN 500,000 UNITS/5 ML UDC PO SCH ×4 (06:00→19:51)
[2017-02-04 07:07] VITALS: BP 112/68
[2017-02-04] MEDS: LOSARTAN 50MG TABLET PO SCH ×2 (08:04→19:53)
[2017-02-04] MEDS: BACLOFEN 10 MG TABLET PO SCH ×3 (08:04→19:51)
[2017-02-04] MEDS: FOLIC ACID 1 MG TABLET PO SCH (08:04)
[2017-02-04] MEDS: METOPROLOL TARTRATE 25 MG TABLET PO SCH ×2 (08:05→19:51)
[2017-02-04] MEDS: SENNA/DOCUSATE TABLET PO SCH (08:05)
[2017-02-04] MEDS: THIAMINE 100MG TABLET PO SCH (08:05)
[2017-02-04 08:06] LABS: BLOOD UREA NITROGEN 38 mg/dL (7-18)
[2017-02-04] MEDS: ALBUTEROL/IPRATROPIUM 2.5MG/0.5MG, 3 ML NPPB SCH ×3 (09:58→20:43)
[2017-02-04 13:53] VITALS: BP 125/80
[2017-02-04] MEDS: TAMSULOSIN 0.4 MG CAP.ER.24H PO SCH (13:59)
[2017-02-04 20:00] VITALS: BP 122/66
[2017-02-04] MEDS: ACETAMINOPHEN 325 MG TABLET PO PRN (22:30)
[2017-02-05] MEDS: OXYcodone IR 5MG TABLET PO PRN ×4 (01:28→23:45)
[2017-02-05] MEDS: HEPARIN 5,000 UNITS/ML, 1ML SQ SCH ×3 (01:28→18:38)
[2017-02-05 02:00] VITALS: BP 124/76
[2017-02-05] MEDS: ACETAMINOPHEN 325 MG TABLET PO PRN ×4 (04:46→23:45)
[2017-02-05 05:59] LABS: BLOOD UREA NITROGEN 36 mg/dL (7-18)
[2017-02-05] MEDS: NYSTATIN 500,000 UNITS/5 ML UDC PO SCH ×4 (06:34→23:02)
[2017-02-05 06:52] VITALS: BP 99/59
[2017-02-05] MEDS: BACLOFEN 10 MG TABLET PO SCH ×3 (09:10→23:45)
[2017-02-05] MEDS: THIAMINE 100MG TABLET PO SCH (09:10)
[2017-02-05] MEDS: SENNA/DOCUSATE TABLET PO SCH (09:10)
[2017-02-05] MEDS: LOSARTAN 50MG TABLET PO SCH ×2 (09:10→23:03)
[2017-02-05] MEDS: TAMSULOSIN 0.4 MG CAP.ER.24H PO SCH (09:10)
[2017-02-05] MEDS: FOLIC ACID 1 MG TABLET PO SCH (09:10)
[2017-02-05] MEDS: METOPROLOL TARTRATE 25 MG TABLET PO SCH ×2 (11:30→23:03)
[2017-02-05] MEDS: HYDROmorphone 2MG TABLET PO PRN ×2 (12:02→18:39)
[2017-02-05 13:27] VITALS: BP 123/72
[2017-02-05] MEDS: ONDANSETRON 2MG/ML, 2ML IVPush PRN (19:34)
[2017-02-05 20:00] VITALS: BP 132/78
[2017-02-05] MEDS: METOCLOPRAMIDE 5 MG/ML, 2ML IVPush SCH (23:03)
[2017-02-06 02:00] VITALS: BP 123/76
[2017-02-06] MEDS: HEPARIN 5,000 UNITS/ML, 1ML SQ SCH ×3 (02:03→16:15)
[2017-02-06 05:10] LABS: BLOOD UREA NITROGEN 28 mg/dL (7-18)
[2017-02-06] MEDS: OXYcodone IR 5MG TABLET PO PRN ×4 (05:23→21:29)
[2017-02-06] MEDS: METOCLOPRAMIDE 5 MG/ML, 2ML IVPush SCH ×4 (05:24→21:39)
[2017-02-06] MEDS: ACETAMINOPHEN 325 MG TABLET PO PRN ×2 (05:24→15:23)
[2017-02-06] MEDS: NYSTATIN 500,000 UNITS/5 ML UDC PO SCH ×4 (05:30→21:05)
[2017-02-06 08:12] VITALS: BP 120/60
[2017-02-06] MEDS: SENNA/DOCUSATE TABLET PO SCH (09:00)
[2017-02-06] MEDS: BACLOFEN 10 MG TABLET PO SCH ×3 (09:46→21:05)
[2017-02-06] MEDS: FOLIC ACID 1 MG TABLET PO SCH (09:46)
[2017-02-06] MEDS: LOSARTAN 50MG TABLET PO SCH ×2 (09:46→21:04)
[2017-02-06] MEDS: THIAMINE 100MG TABLET PO SCH (09:47)
[2017-02-06] MEDS: TAMSULOSIN 0.4 MG CAP.ER.24H PO SCH (09:47)
[2017-02-06] MEDS: METOPROLOL TARTRATE 25 MG TABLET PO SCH ×2 (09:47→21:05)
[2017-02-06 13:29] VITALS: BP 136/70
[2017-02-06 20:00] VITALS: BP 139/79
[2017-02-06] MEDS: ONDANSETRON 2MG/ML, 2ML IVPush PRN (23:21)
[2017-02-07] MEDS: HEPARIN 5,000 UNITS/ML, 1ML SQ SCH ×3 (01:52→17:52)
[2017-02-07 02:00] VITALS: BP 120/62
[2017-02-07] MEDS: METOCLOPRAMIDE 5 MG/ML, 2ML IVPush SCH ×3 (04:48→21:18)
[2017-02-07] MEDS: OXYcodone IR 5MG TABLET PO PRN ×4 (04:49→22:58)
[2017-02-07] MEDS: ACETAMINOPHEN 325 MG TABLET PO PRN ×4 (04:49→22:58)
[2017-02-07] MEDS: NYSTATIN 500,000 UNITS/5 ML UDC PO SCH ×4 (05:00→21:38)
[2017-02-07 06:07] LABS: BLOOD UREA NITROGEN 26 mg/dL (7-18)
[2017-02-07 07:37] VITALS: BP 124/68
[2017-02-07] MEDS: TAMSULOSIN 0.4 MG CAP.ER.24H PO SCH (09:16)
[2017-02-07] MEDS: FOLIC ACID 1 MG TABLET PO SCH (09:19)
[2017-02-07] MEDS: LOSARTAN 50MG TABLET PO SCH ×2 (09:19→21:38)
[2017-02-07] MEDS: SENNA/DOCUSATE TABLET PO SCH (09:19)
[2017-02-07] MEDS: BACLOFEN 10 MG TABLET PO SCH ×3 (09:19→21:38)
[2017-02-07] MEDS: THIAMINE 100MG TABLET PO SCH (09:19)
[2017-02-07] MEDS: METOPROLOL TARTRATE 25 MG TABLET PO SCH ×2 (09:20→21:38)
[2017-02-07 13:01] VITALS: BP 144/77
[2017-02-07 20:21] VITALS: BP 136/69
[2017-02-07] MEDS: METOCLOPRAMIDE 10MG TABLET PO SCH (22:36)
[2017-02-08 01:41] VITALS: BP 130/64
[2017-02-08] MEDS: HEPARIN 5,000 UNITS/ML, 1ML SQ SCH ×3 (03:14→20:43)
[2017-02-08] MEDS: OXYcodone IR 5MG TABLET PO PRN ×4 (03:19→20:44)
[2017-02-08] MEDS: METOCLOPRAMIDE 10MG TABLET PO SCH ×4 (05:28→22:38)
[2017-02-08] MEDS: NYSTATIN 500,000 UNITS/5 ML UDC PO SCH ×4 (05:28→20:43)
[2017-02-08 05:33] LABS: BLOOD UREA NITROGEN 24 mg/dL (7-18)
[2017-02-08 08:13] VITALS: BP 131/64
[2017-02-08] MEDS: THIAMINE 100MG TABLET PO SCH (08:34)
[2017-02-08] MEDS: ACETAMINOPHEN 325 MG TABLET PO PRN ×2 (08:34→16:09)
[2017-02-08] MEDS: METOPROLOL TARTRATE 25 MG TABLET PO SCH ×2 (08:34→20:44)
[2017-02-08] MEDS: LOSARTAN 50MG TABLET PO SCH ×2 (08:34→20:44)
[2017-02-08] MEDS: BACLOFEN 10 MG TABLET PO SCH ×3 (08:34→20:44)
[2017-02-08] MEDS: TAMSULOSIN 0.4 MG CAP.ER.24H PO SCH (08:34)
[2017-02-08] MEDS: FOLIC ACID 1 MG TABLET PO SCH (08:34)
[2017-02-08] MEDS: SENNA/DOCUSATE TABLET PO SCH (08:34)
[2017-02-08 17:54] VITALS: BP 114/78
[2017-02-08 19:25] VITALS: BP 130/61
[2017-02-09 02:55] VITALS: BP 148/74
[2017-02-09] MEDS: NYSTATIN 500,000 UNITS/5 ML UDC PO SCH ×4 (05:04→21:33)
[2017-02-09] MEDS: METOCLOPRAMIDE 10MG TABLET PO SCH ×3 (05:04→15:15)
[2017-02-09] MEDS: OXYcodone IR 5MG TABLET PO PRN ×4 (05:05→20:24)
[2017-02-09] MEDS: HEPARIN 5,000 UNITS/ML, 1ML SQ SCH ×2 (05:05→15:15)
[2017-02-09] MEDS: ACETAMINOPHEN 325 MG TABLET PO PRN ×4 (05:05→20:24)
[2017-02-09 06:26] LABS: BLOOD UREA NITROGEN 22 mg/dL (7-18)
[2017-02-09 07:23] VITALS: BP 134/73
[2017-02-09] MEDS: SENNA/DOCUSATE TABLET PO SCH (08:12)
[2017-02-09] MEDS: FOLIC ACID 1 MG TABLET PO SCH (08:32)
[2017-02-09] MEDS: METOPROLOL TARTRATE 25 MG TABLET PO SCH ×2 (08:32→21:33)
[2017-02-09] MEDS: BACLOFEN 10 MG TABLET PO SCH ×3 (08:32→21:33)
[2017-02-09] MEDS: TAMSULOSIN 0.4 MG CAP.ER.24H PO SCH (08:32)
[2017-02-09] MEDS: THIAMINE 100MG TABLET PO SCH (08:32)
[2017-02-09] MEDS: LOSARTAN 50MG TABLET PO SCH ×2 (08:32→21:33)
[2017-02-09 13:45] VITALS: BP 125/78
[2017-02-09] MEDS: AMPICILLIN/SULBACTAM 3 GM in SODIUM CHLORIDE 0.9% 100 ML IV SCH ×2 (15:14→20:23)
[2017-02-09 21:01] VITALS: BP 129/77
[2017-02-10] MEDS: AMPICILLIN/SULBACTAM 3 GM in SODIUM CHLORIDE 0.9% 100 ML IV SCH ×6 (01:00→23:15)
[2017-02-10] MEDS: METOCLOPRAMIDE 10MG TABLET PO SCH ×3 (01:20→07:57)
[2017-02-10] MEDS: HEPARIN 5,000 UNITS/ML, 1ML SQ SCH ×3 (01:20→17:03)
[2017-02-10] MEDS: ACETAMINOPHEN 325 MG TABLET PO PRN ×2 (01:21→05:56)
[2017-02-10] MEDS: OXYcodone IR 5MG TABLET PO PRN ×2 (01:21→05:56)
[2017-02-10 01:38] VITALS: BP 132/81
[2017-02-10] MEDS: NYSTATIN 500,000 UNITS/5 ML UDC PO SCH ×4 (05:56→21:11)
[2017-02-10 07:41] VITALS: BP 130/78
[2017-02-10 07:49] LABS: BLOOD UREA NITROGEN 24 mg/dL (7-18)
[2017-02-10 07:54] LABS: ASPARTATE AMINO TRANSFERASE 25 U/L (15-37)
[2017-02-10] MEDS: HYDROmorphone 2MG TABLET PO PRN ×3 (07:56→21:11)
[2017-02-10] MEDS: THIAMINE 100MG TABLET PO SCH (07:57)
[2017-02-10] MEDS: FOLIC ACID 1 MG TABLET PO SCH (07:57)
[2017-02-10] MEDS: LOSARTAN 50MG TABLET PO SCH ×2 (07:57→21:11)
[2017-02-10] MEDS: SENNA/DOCUSATE TABLET PO SCH (07:57)
[2017-02-10] MEDS: TAMSULOSIN 0.4 MG CAP.ER.24H PO SCH (07:57)
[2017-02-10] MEDS: BACLOFEN 10 MG TABLET PO SCH ×3 (07:57→21:11)
[2017-02-10] MEDS: METOPROLOL TARTRATE 25 MG TABLET PO SCH ×2 (07:58→23:15)
[2017-02-10 12:00] VITALS: BP 143/88
[2017-02-10 19:45] VITALS: BP 133/78
[2017-02-10] MEDS: LINEZOLID 600 MG TABLET PO SCH (21:12)
[2017-02-11] MEDS: HEPARIN 5,000 UNITS/ML, 1ML SQ SCH ×3 (00:49→16:35)
[2017-02-11 00:57] VITALS: BP 133/82
[2017-02-11] MEDS: HYDROmorphone 2MG TABLET PO PRN ×4 (04:38→23:19)
[2017-02-11] MEDS: AMPICILLIN/SULBACTAM 3 GM in SODIUM CHLORIDE 0.9% 100 ML IV SCH ×4 (04:39→23:20)
[2017-02-11 04:52] LABS: BLOOD UREA NITROGEN 22 mg/dL (7-18)
[2017-02-11] MEDS: NYSTATIN 500,000 UNITS/5 ML UDC PO SCH ×4 (05:50→20:38)
[2017-02-11 07:00] VITALS: BP 154/88
[2017-02-11] MEDS: THIAMINE 100MG TABLET PO SCH (09:49)
[2017-02-11] MEDS: LOSARTAN 50MG TABLET PO SCH ×2 (09:49→20:39)
[2017-02-11] MEDS: TAMSULOSIN 0.4 MG CAP.ER.24H PO SCH (09:49)
[2017-02-11] MEDS: FOLIC ACID 1 MG TABLET PO SCH (09:49)
[2017-02-11] MEDS: SENNA/DOCUSATE TABLET PO SCH (09:49)
[2017-02-11] MEDS: LINEZOLID 600 MG TABLET PO SCH ×2 (09:50→20:39)
[2017-02-11] MEDS: METOPROLOL TARTRATE 25 MG TABLET PO SCH ×2 (09:50→20:38)
[2017-02-11] MEDS: BACLOFEN 10 MG TABLET PO SCH ×3 (09:50→20:39)
[2017-02-11 12:40] VITALS: BP 148/69
[2017-02-11 19:08] VITALS: BP 132/77
[2017-02-12] MEDS: HEPARIN 5,000 UNITS/ML, 1ML SQ SCH ×4 (00:35→23:31)
[2017-02-12 02:31] VITALS: BP 130/79
[2017-02-12] MEDS: HYDROmorphone 2MG TABLET PO PRN ×3 (03:47→13:18)
[2017-02-12 04:20] LABS: BLOOD UREA NITROGEN 22 mg/dL (7-18)
[2017-02-12] MEDS: NYSTATIN 500,000 UNITS/5 ML UDC PO SCH ×4 (05:08→21:46)
[2017-02-12] MEDS: AMPICILLIN/SULBACTAM 3 GM in SODIUM CHLORIDE 0.9% 100 ML IV SCH ×4 (05:08→23:17)
[2017-02-12 06:45] VITALS: BP 143/73
[2017-02-12] MEDS: FOLIC ACID 1 MG TABLET PO SCH (09:10)
[2017-02-12] MEDS: LINEZOLID 600 MG TABLET PO SCH ×2 (09:12→21:45)
[2017-02-12] MEDS: SENNA/DOCUSATE TABLET PO SCH (09:18)
[2017-02-12] MEDS: METOPROLOL TARTRATE 25 MG TABLET PO SCH ×2 (09:18→21:46)
[2017-02-12] MEDS: THIAMINE 100MG TABLET PO SCH (09:18)
[2017-02-12] MEDS: BACLOFEN 10 MG TABLET PO SCH ×3 (09:18→21:45)
[2017-02-12] MEDS: TAMSULOSIN 0.4 MG CAP.ER.24H PO SCH (09:18)
[2017-02-12] MEDS: LOSARTAN 50MG TABLET PO SCH ×2 (09:18→21:46)
[2017-02-12 12:35] VITALS: BP 156/72
[2017-02-12] MEDS: OXYcodone IR 5MG TABLET PO PRN ×2 (16:30→21:54)
[2017-02-12 20:07] VITALS: BP 118/75
[2017-02-13 03:15] VITALS: BP 139/84
[2017-02-13] MEDS: HYDROmorphone 2MG TABLET PO PRN (03:15)
[2017-02-13 03:53] LABS: BLOOD UREA NITROGEN 16 mg/dL (7-18)
[2017-02-13] MEDS: OXYcodone IR 5MG TABLET PO PRN ×2 (09:45→18:30)
[2017-02-13] MEDS: LINEZOLID 600 MG TABLET PO SCH ×2 (09:45→20:30)
[2017-02-13] MEDS: HEPARIN 5,000 UNITS/ML, 1ML SQ SCH ×2 (09:45→16:35)
[2017-02-13] MEDS: METOPROLOL TARTRATE 25 MG TABLET PO SCH ×2 (09:45→20:30)
[2017-02-13] MEDS: NYSTATIN 500,000 UNITS/5 ML UDC PO SCH ×5 (09:45→21:00)
[2017-02-13] MEDS: LOSARTAN 50MG TABLET PO SCH ×2 (09:45→20:30)
[2017-02-13] MEDS: FOLIC ACID 1 MG TABLET PO SCH (09:45)
[2017-02-13] MEDS: BACLOFEN 10 MG TABLET PO SCH ×3 (09:45→20:30)
[2017-02-13] MEDS: SENNA/DOCUSATE TABLET PO SCH (09:45)
[2017-02-13] MEDS: THIAMINE 100MG TABLET PO SCH (09:45)
[2017-02-13] MEDS: TAMSULOSIN 0.4 MG CAP.ER.24H PO SCH (09:45)
[2017-02-13] MEDS: AMPICILLIN/SULBACTAM 3 GM in SODIUM CHLORIDE 0.9% 100 ML IV SCH ×3 (13:00→18:10)
[2017-02-14] MEDS: METOCLOPRAMIDE 5 MG/ML, 2ML IV PRN ×3 (00:10→22:06)
[2017-02-14] MEDS: DIPHENHYDRAMINE 50 MG/ML, 1ML IVPush PRN ×3 (00:10→22:06)
[2017-02-14] MEDS: HEPARIN 5,000 UNITS/ML, 1ML SQ SCH ×4 (00:15→23:35)
[2017-02-14] MEDS: AMPICILLIN/SULBACTAM 3 GM in SODIUM CHLORIDE 0.9% 100 ML IV SCH ×3 (04:20→22:05)
[2017-02-14] MEDS: NYSTATIN 500,000 UNITS/5 ML UDC PO SCH ×4 (06:00→22:06)
[2017-02-14 07:05] VITALS: BP 152/86
[2017-02-14] MEDS: FOLIC ACID 1 MG TABLET PO SCH (09:15)
[2017-02-14] MEDS: METOPROLOL TARTRATE 25 MG TABLET PO SCH ×2 (09:15→22:06)
[2017-02-14] MEDS: LOSARTAN 50MG TABLET PO SCH ×2 (09:15→22:05)
[2017-02-14] MEDS: SENNA/DOCUSATE TABLET PO SCH (09:15)
[2017-02-14] MEDS: BACLOFEN 10 MG TABLET PO SCH ×3 (09:15→22:05)
[2017-02-14] MEDS: TAMSULOSIN 0.4 MG CAP.ER.24H PO SCH (09:15)
[2017-02-14] MEDS: LINEZOLID 600 MG TABLET PO SCH ×2 (09:15→22:05)
[2017-02-14] MEDS: THIAMINE 100MG TABLET PO SCH (09:15)
[2017-02-14 13:39] VITALS: BP 113/66
[2017-02-14 20:00] VITALS: BP 128/63
[2017-02-15] MEDS: TAMSULOSIN 0.4 MG CAP.ER.24H PO SCH ×2 (00:18→10:32)
[2017-02-15 02:00] VITALS: BP 140/85
[2017-02-15] MEDS: OXYcodone IR 5MG TABLET PO PRN ×2 (02:15→20:48)
[2017-02-15] MEDS: METOCLOPRAMIDE 5 MG/ML, 2ML IV PRN ×3 (04:34→18:37)
[2017-02-15] MEDS: DIPHENHYDRAMINE 50 MG/ML, 1ML IVPush PRN ×3 (04:34→18:37)
[2017-02-15] MEDS: AMPICILLIN/SULBACTAM 3 GM in SODIUM CHLORIDE 0.9% 100 ML IV SCH ×3 (04:34→17:55)
[2017-02-15 05:11] LABS: BLOOD UREA NITROGEN 14 mg/dL (7-18)
[2017-02-15] MEDS: NYSTATIN 500,000 UNITS/5 ML UDC PO SCH ×4 (05:30→20:47)
[2017-02-15] MEDS: SENNA/DOCUSATE TABLET PO SCH (09:00)
[2017-02-15 10:27] VITALS: BP 162/73
[2017-02-15] MEDS: THIAMINE 100MG TABLET PO SCH (10:32)
[2017-02-15] MEDS: FOLIC ACID 1 MG TABLET PO SCH (10:32)
[2017-02-15] MEDS: HEPARIN 5,000 UNITS/ML, 1ML SQ SCH ×2 (10:32→17:56)
[2017-02-15] MEDS: BACLOFEN 10 MG TABLET PO SCH ×3 (10:32→20:47)
[2017-02-15] MEDS: METOPROLOL TARTRATE 25 MG TABLET PO SCH ×2 (10:32→20:47)
[2017-02-15] MEDS: LINEZOLID 600 MG TABLET PO SCH ×2 (10:32→20:47)
[2017-02-15] MEDS: LOSARTAN 50MG TABLET PO SCH ×2 (10:32→20:47)
[2017-02-15 13:49] VITALS: BP 131/68
[2017-02-15 20:00] VITALS: BP 129/67
[2017-02-15 20:15] LABS: BLOOD UREA NITROGEN 14 mg/dL (7-18)
[2017-02-16] MEDS: AMPICILLIN/SULBACTAM 3 GM in SODIUM CHLORIDE 0.9% 100 ML IV SCH ×2 (00:53→05:33)
[2017-02-16] MEDS: HEPARIN 5,000 UNITS/ML, 1ML SQ SCH ×3 (00:53→16:52)
[2017-02-16] MEDS: DIPHENHYDRAMINE 50 MG/ML, 1ML IVPush PRN ×3 (00:54→16:53)
[2017-02-16] MEDS: METOCLOPRAMIDE 5 MG/ML, 2ML IV PRN ×3 (00:54→16:53)
[2017-02-16] MEDS: OXYcodone IR 5MG TABLET PO PRN (00:54)
[2017-02-16 02:00] VITALS: BP 155/74
[2017-02-16] MEDS: NYSTATIN 500,000 UNITS/5 ML UDC PO SCH ×4 (05:33→21:00)
[2017-02-16 06:32] VITALS: BP 148/78
[2017-02-16 07:09] LABS: BLOOD UREA NITROGEN 14 mg/dL (7-18)
[2017-02-16] MEDS: SENNA/DOCUSATE TABLET PO SCH (09:00)
[2017-02-16] MEDS: TAMSULOSIN 0.4 MG CAP.ER.24H PO SCH (09:56)
[2017-02-16] MEDS: FOLIC ACID 1 MG TABLET PO SCH (09:56)
[2017-02-16] MEDS: LOSARTAN 50MG TABLET PO SCH ×2 (09:56→20:27)
[2017-02-16] MEDS: LINEZOLID 600 MG TABLET PO SCH ×2 (09:57→20:28)
[2017-02-16] MEDS: METOPROLOL TARTRATE 25 MG TABLET PO SCH ×2 (09:57→20:28)
[2017-02-16] MEDS: THIAMINE 100MG TABLET PO SCH (09:57)
[2017-02-16] MEDS: AMOXICILLIN/CLAV 875-125MG TABLET PO SCH ×2 (09:57→20:27)
[2017-02-16] MEDS: BACLOFEN 10 MG TABLET PO SCH ×3 (09:57→20:27)
[2017-02-16 12:43] VITALS: BP 131/80
[2017-02-16 20:00] VITALS: BP 123/76
[2017-02-17] MEDS: DIPHENHYDRAMINE 50 MG/ML, 1ML IVPush PRN ×4 (00:37→19:51)
[2017-02-17] MEDS: HEPARIN 5,000 UNITS/ML, 1ML SQ SCH ×3 (00:37→16:18)
[2017-02-17] MEDS: METOCLOPRAMIDE 5 MG/ML, 2ML IV PRN ×4 (00:37→19:51)
[2017-02-17 02:00] VITALS: BP 149/85
[2017-02-17] MEDS: NYSTATIN 500,000 UNITS/5 ML UDC PO SCH ×4 (05:09→19:51)
[2017-02-17 06:30] LABS: BLOOD UREA NITROGEN 15 mg/dL (7-18)
[2017-02-17 07:15] VITALS: BP 114/66
[2017-02-17] MEDS: METOPROLOL TARTRATE 25 MG TABLET PO SCH ×2 (09:00→19:50)
[2017-02-17] MEDS: TAMSULOSIN 0.4 MG CAP.ER.24H PO SCH (09:59)
[2017-02-17] MEDS: BACLOFEN 10 MG TABLET PO SCH ×3 (09:59→19:50)
[2017-02-17] MEDS: AMOXICILLIN/CLAV 875-125MG TABLET PO SCH ×2 (09:59→19:50)
[2017-02-17] MEDS: FOLIC ACID 1 MG TABLET PO SCH (09:59)
[2017-02-17] MEDS: LOSARTAN 50MG TABLET PO SCH ×2 (09:59→19:50)
[2017-02-17] MEDS: SENNA/DOCUSATE TABLET PO SCH (10:00)
[2017-02-17] MEDS: THIAMINE 100MG TABLET PO SCH (10:00)
[2017-02-17] MEDS: LINEZOLID 600 MG TABLET PO SCH ×2 (10:00→19:50)
[2017-02-17 13:46] VITALS: BP 132/83
[2017-02-17 19:45] VITALS: BP 132/83
[2017-02-18 00:40] VITALS: BP 127/78
[2017-02-18] MEDS: DIPHENHYDRAMINE 50 MG/ML, 1ML IVPush PRN ×4 (02:04→21:10)
[2017-02-18] MEDS: METOCLOPRAMIDE 5 MG/ML, 2ML IV PRN ×4 (02:04→21:10)
[2017-02-18] MEDS: HEPARIN 5,000 UNITS/ML, 1ML SQ SCH ×3 (02:04→17:57)
[2017-02-18] MEDS: NYSTATIN 500,000 UNITS/5 ML UDC PO SCH ×4 (05:22→21:09)
[2017-02-18 05:52] LABS: BLOOD UREA NITROGEN 17 mg/dL (7-18)
[2017-02-18 06:50] VITALS: BP 113/69
[2017-02-18] MEDS: BACLOFEN 10 MG TABLET PO SCH ×3 (08:36→21:09)
[2017-02-18] MEDS: FOLIC ACID 1 MG TABLET PO SCH (08:36)
[2017-02-18] MEDS: TAMSULOSIN 0.4 MG CAP.ER.24H PO SCH (08:36)
[2017-02-18] MEDS: LOSARTAN 50MG TABLET PO SCH ×2 (08:36→21:09)
[2017-02-18] MEDS: AMOXICILLIN/CLAV 875-125MG TABLET PO SCH ×2 (08:36→21:09)
[2017-02-18] MEDS: METOPROLOL TARTRATE 25 MG TABLET PO SCH ×2 (08:37→21:09)
[2017-02-18] MEDS: THIAMINE 100MG TABLET PO SCH (08:37)
[2017-02-18] MEDS: SENNA/DOCUSATE TABLET PO SCH (08:37)
[2017-02-18] MEDS: LINEZOLID 600 MG TABLET PO SCH ×2 (08:37→21:10)
[2017-02-18 12:55] VITALS: BP 137/76
[2017-02-18] MEDS ORDERED: FOLI-17 PO (15:19)
[2017-02-18] MEDS ORDERED: METO25TA35 PO (15:19)
[2017-02-18] MEDS ORDERED: BACL-19 PO (15:19)
[2017-02-18] MEDS ORDERED: HYDR2TAB40 PO (15:19)
[2017-02-18] MEDS ORDERED: TAMS-11 PO (15:19)
[2017-02-18] MEDS ORDERED: LOSA50TA2 PO (15:19)
[2017-02-18] MEDS ORDERED: THIA100T6 PO (15:19)
[2017-02-18] MEDS ORDERED: OXYC5TAB3 PO (15:19)
[2017-02-18] MEDS ORDERED: SENN1TAB7 PO (15:19)
[2017-02-18] MEDS ORDERED: ACET325T14 PO (15:19)
[2017-02-18 20:06] VITALS: BP 120/72
[2017-02-19 00:04] VITALS: BP 129/68
[2017-02-19] MEDS: METOCLOPRAMIDE 5 MG/ML, 2ML IV PRN ×4 (03:03→20:59)
[2017-02-19] MEDS: HEPARIN 5,000 UNITS/ML, 1ML SQ SCH ×3 (03:03→17:14)
[2017-02-19] MEDS: DIPHENHYDRAMINE 50 MG/ML, 1ML IVPush PRN ×4 (03:03→21:00)
[2017-02-19 06:11] LABS: BLOOD UREA NITROGEN 17 mg/dL (7-18)
[2017-02-19] MEDS: NYSTATIN 500,000 UNITS/5 ML UDC PO SCH ×4 (06:11→20:59)
[2017-02-19 07:01] VITALS: BP 131/65
[2017-02-19] MEDS: LINEZOLID 600 MG TABLET PO SCH ×2 (09:46→20:59)
[2017-02-19] MEDS: AMOXICILLIN/CLAV 875-125MG TABLET PO SCH ×2 (09:47→20:59)
[2017-02-19] MEDS: FOLIC ACID 1 MG TABLET PO SCH (09:47)
[2017-02-19] MEDS: TAMSULOSIN 0.4 MG CAP.ER.24H PO SCH (09:47)
[2017-02-19] MEDS: METOPROLOL TARTRATE 25 MG TABLET PO SCH ×2 (09:47→20:59)
[2017-02-19] MEDS: SENNA/DOCUSATE TABLET PO SCH (09:47)
[2017-02-19] MEDS: THIAMINE 100MG TABLET PO SCH (09:47)
[2017-02-19] MEDS: LOSARTAN 50MG TABLET PO SCH ×2 (09:47→20:59)
[2017-02-19] MEDS: BACLOFEN 10 MG TABLET PO SCH ×3 (09:47→20:59)
[2017-02-19 13:13] VITALS: BP 132/80
[2017-02-19 18:42] VITALS: BP 115/68
[2017-02-20] MEDS: HEPARIN 5,000 UNITS/ML, 1ML SQ SCH ×2 (00:22→08:40)
[2017-02-20 01:14] VITALS: BP 124/76
[2017-02-20] MEDS: METOCLOPRAMIDE 5 MG/ML, 2ML IV PRN (03:33)
[2017-02-20] MEDS: DIPHENHYDRAMINE 50 MG/ML, 1ML IVPush PRN (03:33)
[2017-02-20 03:57] LABS: BLOOD UREA NITROGEN 21 mg/dL (7-18)
[2017-02-20] MEDS: NYSTATIN 500,000 UNITS/5 ML UDC PO SCH (06:24)
[2017-02-20 07:28] VITALS: BP 138/84
[2017-02-20] MEDS: METOPROLOL TARTRATE 25 MG TABLET PO SCH (08:39)
[2017-02-20] MEDS: FOLIC ACID 1 MG TABLET PO SCH (08:39)
[2017-02-20] MEDS: BACLOFEN 10 MG TABLET PO SCH (08:39)
[2017-02-20] MEDS: THIAMINE 100MG TABLET PO SCH (08:39)
[2017-02-20] MEDS: LOSARTAN 50MG TABLET PO SCH (08:39)
[2017-02-20] MEDS: SENNA/DOCUSATE TABLET PO SCH (08:39)
[2017-02-20] MEDS: TAMSULOSIN 0.4 MG CAP.ER.24H PO SCH (08:39)
[2017-02-20] MEDS: AMOXICILLIN/CLAV 875-125MG TABLET PO SCH (08:39)
[2017-02-20] MEDS: LINEZOLID 600 MG TABLET PO SCH (08:40)
[2017-02-20] MEDS ORDERED: CEPH-368 PO (08:53)
[2017-02-20] MEDS: OXYcodone IR 5MG TABLET PO PRN (10:05)
== END 2017-02-20 10:17 | DRG 25 ==
LOC: ED 13:46 → EDIP 17:26 → CCU 20:59 → ICU 01-27 18:59 → CCU 01-29 02:00 → 5SO 01-30 13:27 → 4EST 02-02 01:25
PROVIDERS: ADMIT Internal Medicine; ATTEND Internal Medicine
PROC: 00C40ZZ Extirpation of Matter from Intracranial Subdural Space, Open Approach (ICD-10-PCS; principal; 2017-01-19 18:30)
PROC: 0DH60UZ Insertion of Feeding Device into Stomach, Open Approach (ICD-10-PCS; 2017-01-27)
PROC: 0WQF0ZZ Repair Abdominal Wall, Open Approach (ICD-10-PCS; 2017-01-27)
PROC: 0T9B70Z Drainage of Bladder with Drainage Device, Via Natural or Artificial Opening (ICD-10-PCS; 2017-02-03)
PROC: 02HV33Z Insertion of Infusion Device into Superior Vena Cava, Percutaneous Approach (ICD-10-PCS; 2017-02-10)
PROC: B548ZZA Ultrasonography of Superior Vena Cava, Guidance (ICD-10-PCS; 2017-02-10)
PROC: 5A1955Z Respiratory Ventilation, Greater than 96 Consecutive Hours (ICD-10-PCS; 2017-02-10)
PROC: 0BH17EZ Insertion of Endotracheal Airway into Trachea, Via Natural or Artificial Opening (ICD-10-PCS; 2017-02-10)
DX: S06.5X0A Traumatic subdural hemorrhage without loss of consciousness, initial encounter (principal); J96.00 Acute respiratory failure, unspecified whether with hypoxia or hypercapnia; J69.0 Pneumonitis due to inhalation of food and vomit; G93.41 Metabolic encephalopathy; E43 Unspecified severe protein-calorie malnutrition; G93.5 Compression of brain; E22.2 Syndrome of inappropriate secretion of antidiuretic hormone; L02.415 Cutaneous abscess of right lower limb; L03.115 Cellulitis of right lower limb; L03.113 Cellulitis of right upper limb; L03.311 Cellulitis of abdominal wall; F10.239 Alcohol dependence with withdrawal, unspecified; N39.0 Urinary tract infection, site not specified; E87.0 Hyperosmolality and hypernatremia; Z99.11 Dependence on respirator [ventilator] status; K46.0 Unspecified abdominal hernia with obstruction, without gangrene; X58.XXXA Exposure to other specified factors, initial encounter; Z91.19 Patient's noncompliance with other medical treatment and regimen; F17.210 Nicotine dependence, cigarettes, uncomplicated; Z59.0 Homelessness; F10.220 Alcohol dependence with intoxication, uncomplicated; D72.829 Elevated white blood cell count, unspecified; E83.42 Hypomagnesemia; E87.6 Hypokalemia; N18.9 Chronic kidney disease, unspecified; I12.9 Hypertensive chronic kidney disease with stage 1 through stage 4 chronic kidney disease, or unspecified chronic kidney disease; R13.19 Other dysphagia; D63.8 Anemia in other chronic diseases classified elsewhere; D75.89 Other specified diseases of blood and blood-forming organs; B96.20 Unspecified Escherichia coli [E. coli] as the cause of diseases classified elsewhere; N40.0 Benign prostatic hyperplasia without lower urinary tract symptoms; Z88.1 Allergy status to other antibiotic agents; I10 Essential (primary) hypertension; K42.9 Umbilical hernia without obstruction or gangrene; Y99.8 Other external cause status; Y92.89 Other specified places as the place of occurrence of the external cause; Y93.9 Activity, unspecified; Z68.24 Body mass index [BMI] 24.0-24.9, adult
CPT/HCPCS: 31500; 36415; 36556; 36569; 36600; 70450; 71010; 72125; 74000; 74230; 74340; 76937; 77001; 80048; 80053; 80307; 81001; 82140; 82803; 83735; 84100; 84478; 84484; 85025; 85610; 86850; 86900; 87070; 87077; 87081; 87086; 87186; 87205; 93005; 94002; 94003; 94640; 96361; 96374; 96375; C1713; C1729; J0295; J0690; J1644; J1953; J2250; J2405; J2704; J2710; J3010; J3360; J3411; J3475; J3480; J3490; J7042; J7620; Q9967; 92523-GN; C1751; C9113; J0330; J0360; J1200; J1940; J2060; J2370; J2765; J7030; J7040; J7050; S0028

== ENCOUNTER 2017-06-15 01:06 | Emergency (ER) | payer MEDICAID ==
[~2017-06-15] VITALS: Ht 175.3 cm; Wt 81.0 kg
[~2017-06-15 01:06] MED LIST changes: +ACET325T14 PO; +BACL-19 PO; +CEPH-368 PO; +DOCU-131 PO; -DOCU-30 PO; +HYDR2TAB40 PO; +LOSA50TA2 PO; +NICO-486 TD; -NICO1PAT4 TD; -OXYC10TA32 PO; +OXYC10TA47 PO; +SENN1TAB7 PO; +TAMS-11 PO
[2017-06-15 05:16] VITALS: BP 147/84
== END 2017-06-15 05:18 | disposition home or self-care (01) ==
LOC: ED 01:18
DX: F10.229 Alcohol dependence with intoxication, unspecified (principal); I10 Essential (primary) hypertension
CPT/HCPCS: 99283

== ENCOUNTER 2017-06-24 07:03 | Emergency (ER) | payer MEDICAID ==
[~2017-06-24] VITALS: Ht 175.3 cm; Wt 86.6 kg
[2017-06-24] MEDS ORDERED: ACETAMINOPHEN 500 MG TABLET ONE (11:38)
[2017-06-24] MEDS ORDERED: ACETAMINOPHEN 500 MG TABLET PO ONE (12:00)
[2017-06-24 14:03] VITALS: BP 142/74
== END 2017-06-24 14:05 | disposition home or self-care (01) ==
LOC: ED 07:24
DX: S06.310A Contusion and laceration of right cerebrum without loss of consciousness, initial encounter (principal); F10.120 Alcohol abuse with intoxication, uncomplicated; G89.11 Acute pain due to trauma; I10 Essential (primary) hypertension; W19.XXXA Unspecified fall, initial encounter; Y93.89 Activity, other specified; Y92.89 Other specified places as the place of occurrence of the external cause; Y99.8 Other external cause status
CPT/HCPCS: 70450; 72125; 99284

== ENCOUNTER 2017-06-25 23:28 | Emergency (ER) | payer MEDICAID ==
[~2017-06-25] VITALS: Ht 175.3 cm; Wt 90.0 kg
[2017-06-26 02:10] VITALS: BP 141/73
== END 2017-06-26 02:13 | disposition home or self-care (01) ==
LOC: ED 23:49
DX: F10.220 Alcohol dependence with intoxication, uncomplicated (principal); I10 Essential (primary) hypertension; Z88.8 Allergy status to other drugs, medicaments and biological substances
CPT/HCPCS: 99283

== ENCOUNTER 2017-08-08 21:10 | Emergency (ER) | payer MEDICAID ==
[~2017-08-08] VITALS: Ht 182.9 cm; Wt 92.0 kg
[~2017-08-08 21:10] MED LIST changes: +HYDR-3240 PO; +MULT-412 PO
[2017-08-08 23:15] VITALS: BP 122/76
== END 2017-08-08 23:20 | disposition home or self-care (01) ==
LOC: ED 23:00
DX: F10.220 Alcohol dependence with intoxication, uncomplicated (principal); I62.03 Nontraumatic chronic subdural hemorrhage; S40.012A Contusion of left shoulder, initial encounter; S70.02XA Contusion of left hip, initial encounter; M19.90 Unspecified osteoarthritis, unspecified site; I10 Essential (primary) hypertension; Z59.0 Homelessness; W19.XXXA Unspecified fall, initial encounter; Y93.89 Activity, other specified; Y99.8 Other external cause status; Y92.89 Other specified places as the place of occurrence of the external cause
CPT/HCPCS: 70450; 99284

== ENCOUNTER 2017-10-10 10:37 | Inpatient (IN) | payer MEDICAID ==
[~2017-10-10] VITALS: Ht 175.3 cm; Wt 80.2 kg
[~2017-10-10 10:37] MED LIST changes: +ONDANSETRON 2MG/ML, 2ML ONE; +SUCCINYLCHOLINE 20 MG/ML, 10ML ONE
[2017-10-10] MEDS ORDERED: SODIUM CHLORIDE 0.9% 1,000ML IVBOLUS ONE (14:00)
[2017-10-10] MEDS ORDERED: PROPOFOL 10 MG/ML, 20ML IVPush ONE (14:00)
[2017-10-10] MEDS ORDERED: SODIUM CHLORIDE FLUSH 10ML SYR IVF ONE ×2 (14:00→17:00)
[2017-10-10] MEDS ORDERED: KETAMINE 10 MG/ML, 20ML ONE (16:20)
[2017-10-10] MEDS ORDERED: KETAMINE 100 MG/ML, 5ML IV ONE (16:30)
[2017-10-10] MEDS ORDERED: PROPOFOL 10 MG/ML, 20ML ONE (16:34)
[2017-10-10] MEDS ORDERED: MAGNESIUM SULFATE 1 GM, THIAMINE 100 MG, FOLIC ACID 1 MG, MVI ADULT 10 ML in SODIUM CHL... IV ONE (17:00)
[2017-10-10 17:46] LABS: INTERNATIONAL NORMALIZED RATIO 0.99 (0.93-1.1); PROTHROMBIN TIME 10.3 Seconds (9.6-11.5)
[2017-10-10 17:47] LABS: ALANINE AMINOTRANSFERASE 22 U/L (12-78); ALBUMIN 3.3 g/dL (3.4-5.0); ANION GAP 16 mmol/L (5-15); CHLORIDE 108 mmol/L (98-107); CREATININE 0.61 mg/dL (0.7-1.3)
[2017-10-10 17:49] LABS: ALKALINE PHOSPHATASE 104 U/L (45-117); BILIRUBIN,TOTAL 0.3 mg/dL (0.2-1.0); TOTAL PROTEIN 7.2 g/dL (6.4-8.2)
[2017-10-10] MEDS ORDERED: SODIUM CHLORIDE 0.9% 1,000 ML IV ONE (18:28)
[2017-10-10] MEDS ORDERED: SODIUM CHLORIDE FLUSH 10ML SYR IVF PRN (18:30)
[2017-10-10] MEDS ORDERED: FENTANYL PF 100 MCG/2ML ONE ×2 (18:44→19:46)
[2017-10-10] MEDS ORDERED: MIDAZOLAM 1 MG/ML, 2ML ONE (18:45)
[2017-10-10] MEDS ORDERED: LORazepam 2 MG/ML, 1ML IVPush PRN (19:00)
[2017-10-10] MEDS ORDERED: HYDROmorphone 1 MG/ML, 1ML IV PRN (19:00)
[2017-10-10] MEDS ORDERED: EPHEDRINE 50 MG/ML, 1ML IVPush PRN (19:00)
[2017-10-10] MEDS ORDERED: METOPROLOL 1 MG/ML, 5ML IV PRN (19:00)
[2017-10-10] MEDS ORDERED: ONDANSETRON 2MG/ML, 2ML IVPush PRN ×2 (19:00→22:00)
[2017-10-10] MEDS ORDERED: PROMETHAZINE 25 MG/ML, 1ML IV PRN (19:00)
[2017-10-10] MEDS ORDERED: ALBUTEROL SULFATE 2.5 MG/3 ML NPPB PRN (19:00)
[2017-10-10] MEDS ORDERED: hydrALAzine 20 MG/ML, 1ML IV PRN (19:00)
[2017-10-10] MEDS ORDERED: LABETALOL 5MG/ML, 20ML IV PRN (19:00)
[2017-10-10] MEDS ORDERED: OXYcodone 5 MG/5 ML ORAL.SOL UDC PO PRN (19:00)
[2017-10-10] MEDS ORDERED: ACETAMINOPHEN 650 MG/20.3 ML UDC ONE (19:46)
[2017-10-10] MEDS ORDERED: OXYcodone 5 MG/5 ML ORAL.SOL UDC ONE (19:46)
[2017-10-10] MEDS: FENTANYL PF 100 MCG/2ML IV PRN ×2 (19:50→20:00)
[2017-10-10] MEDS ORDERED: ACETAMINOPHEN 325 MG TABLET PO PRN (22:00)
[2017-10-10] MEDS ORDERED: MAGNESIUM SULFATE PMX 2GM/50ML 50 ML IV ONE (22:00)
[2017-10-10] MEDS ORDERED: POLYETHYLENE GLYCOL 17 GM PACKET PO PRN (22:00)
[2017-10-10] MEDS ORDERED: BISACODYL 10 MG SUPP PR PRN (22:00)
[2017-10-10] MEDS: NICOTINE 21 MG/24 HR PATCH.TD24 TD SCH (22:25)
[2017-10-10] MEDS: THIAMINE 100MG TABLET PO SCH (22:25)
[2017-10-10] MEDS: SODIUM CHLORIDE FLUSH 10ML SYR IVF SCH (22:26)
[2017-10-10] MEDS: METOPROLOL TARTRATE 25 MG TABLET PO SCH (22:26)
[2017-10-11 00:09] VITALS: BP 129/78
[2017-10-11] MEDS: LORazepam 2 MG/ML, 1ML IVPush PRN ×2 (02:28→14:00)
[2017-10-11 04:25] VITALS: BP 163/89
[2017-10-11 06:40] LABS: MEAN CORPUSCULAR HEMOGLOBIN 29.6 pg (27.5-34.5); MEAN CORPUSCULAR HGB CONC 32.9 g/dL (33.2-36.2); MEAN CORPUSCULAR VOLUME 90.2 fL (81-97); MEAN PLATELET VOLUME 8.7 fL (7.4-10.4); PLATELET COUNT 159 x10^3/uL (130-400); RED BLOOD COUNT 3.93 x10^6/uL (4.38-5.82); RED CELL DISTRIBUTION WIDTH 16.5 % (9.4-14.8)
[2017-10-11 06:41] LABS: ALANINE AMINOTRANSFERASE 20 U/L (12-78); ALBUMIN 3.2 g/dL (3.4-5.0); ANION GAP 9 mmol/L (5-15); CALCIUM 8.1 mg/dL (8.5-10.1); CHLORIDE 102 mmol/L (98-107)
[2017-10-11 06:44] LABS: ALKALINE PHOSPHATASE 93 U/L (45-117); BILIRUBIN,TOTAL 0.7 mg/dL (0.2-1.0); CREATININE 0.66 mg/dL (0.7-1.3); TOTAL PROTEIN 6.5 g/dL (6.4-8.2)
[2017-10-11 07:25] VITALS: BP 164/86
[2017-10-11 07:48] LABS: MD YES
[2017-10-11 07:59] LABS: EOS#(MANUAL) 0.14 x10^3/uL (0.0-0.4); EOS% (MANUAL) 4 % (1-7); LYMPH#(MANUAL) 1.33 x10^3/uL (1-3.4); LYMPHS% (MANUAL) 38 % (22-44); MONOS#(MANUAL) 0.14 x10^3/uL (0.3-2.7); MONOS% (MANUAL) 4 % (2-9); SEG#(MANUAL) 1.89 x10^3/uL (1.8-6.8); SEGS% (MANUAL) 54 % (42-75)
[2017-10-11 08:00] LABS: <PLATELET ESTIMATE> ADEQUATE; <PLT MORPHOLOGY> NORMAL PLT MORPH; ANISOCYTOSIS 1+
[2017-10-11] MEDS: MULTIVITAMINS/MINERALS TABLET PO SCH (08:38)
[2017-10-11] MEDS: THIAMINE 100MG TABLET PO SCH (08:38)
[2017-10-11] MEDS: OXYcodone IR 5MG TABLET PO PRN ×3 (08:38→22:14)
[2017-10-11] MEDS: SENNA/DOCUSATE TABLET PO SCH (08:39)
[2017-10-11] MEDS: FOLIC ACID 1 MG TABLET PO SCH (08:39)
[2017-10-11] MEDS: SODIUM CHLORIDE FLUSH 10ML SYR IVF SCH ×2 (08:39→21:00)
[2017-10-11] MEDS: METOPROLOL TARTRATE 25 MG TABLET PO SCH ×2 (08:39→22:14)
[2017-10-11 13:20] VITALS: BP 133/75
[2017-10-11] MEDS ORDERED: LIDOCAINE 1%, 20ML ONE (13:53)
[2017-10-11] MEDS ORDERED: ROPivacaine/PF 0.2%, 10 ML ONE (13:53)
[2017-10-11] MEDS ORDERED: LORazepam 2 MG/ML, 1ML IV PRN ×5 (14:30)
[2017-10-11] MEDS ORDERED: POTASSIUM CHLORIDE 20 MEQ TAB.ER.PRT PO ONE (14:30)
[2017-10-11] MEDS ORDERED: LORazepam 0.5MG TABLET PO PRN (14:30)
[2017-10-11] MEDS ORDERED: LORazepam 1MG TABLET PO PRN ×4 (14:30)
[2017-10-11 19:42] VITALS: BP 156/83
[2017-10-11] MEDS: NICOTINE 21 MG/24 HR PATCH.TD24 TD SCH (22:14)
[2017-10-11 22:16] VITALS: BP 146/83
[2017-10-12 02:13] VITALS: BP 167/93
[2017-10-12] MEDS: OXYcodone IR 5MG TABLET PO PRN ×2 (02:41→09:12)
[2017-10-12 05:55] LABS: ANION GAP 8 mmol/L (5-15); CALCIUM 8.3 mg/dL (8.5-10.1); CHLORIDE 104 mmol/L (98-107); CREATININE 0.92 mg/dL (0.7-1.3)
[2017-10-12 06:51] VITALS: BP 171/92
[2017-10-12] MEDS: FOLIC ACID 1 MG TABLET PO SCH (07:48)
[2017-10-12] MEDS: SENNA/DOCUSATE TABLET PO SCH (07:48)
[2017-10-12] MEDS: METOPROLOL TARTRATE 25 MG TABLET PO SCH (07:48)
[2017-10-12] MEDS: MULTIVITAMINS/MINERALS TABLET PO SCH (07:48)
[2017-10-12] MEDS ORDERED: THIAMINE 100MG TABLET PO SCH (09:00)
[2017-10-12] MEDS: SODIUM CHLORIDE FLUSH 10ML SYR IVF SCH (09:13)
[2017-10-12] MEDS ORDERED: ACET325T14 PO (12:06)
[2017-10-12] MEDS ORDERED: THIA100T6 PO (12:06)
[2017-10-12] MEDS ORDERED: MULT-484 PO (12:06)
[2017-10-12] MEDS ORDERED: FOLI-17 PO (12:06)
[2017-10-12 15:52] VITALS: BP 158/89
== END 2017-10-12 16:12 | disposition home or self-care (01) | DRG 563 ==
LOC: ED 11:31 → EDIP 18:28 → 4NOR 20:37
PROVIDERS: ADMIT Hospitalist; ATTEND Hospitalist
PROC: BP39YZZ Magnetic Resonance Imaging (MRI) of Left Shoulder using Other Contrast (ICD-10-PCS; principal; 2017-10-11)
PROC: 0RSKXZZ Reposition Left Shoulder Joint, External Approach (ICD-10-PCS; 2017-10-11)
DX: S43.002A Unspecified subluxation of left shoulder joint, initial encounter (principal); Z99.11 Dependence on respirator [ventilator] status; E87.2 Acidosis; E44.1 Mild protein-calorie malnutrition; E83.42 Hypomagnesemia; D63.8 Anemia in other chronic diseases classified elsewhere; S42.035A Nondisplaced fracture of lateral end of left clavicle, initial encounter for closed fracture; W01.0XXA Fall on same level from slipping, tripping and stumbling without subsequent striking against object, initial encounter; Z68.26 Body mass index [BMI] 26.0-26.9, adult; E87.6 Hypokalemia; F10.20 Alcohol dependence, uncomplicated; F17.210 Nicotine dependence, cigarettes, uncomplicated; I10 Essential (primary) hypertension; M19.012 Primary osteoarthritis, left shoulder; R73.9 Hyperglycemia, unspecified; E87.8 Other disorders of electrolyte and fluid balance, not elsewhere classified; Z59.0 Homelessness; Z79.899 Other long term (current) drug therapy; Z82.49 Family history of ischemic heart disease and other diseases of the circulatory system; Z87.01 Personal history of pneumonia (recurrent); Z87.440 Personal history of urinary (tract) infections; Z87.820 Personal history of traumatic brain injury; Z91.19 Patient's noncompliance with other medical treatment and regimen; Y93.89 Activity, other specified; Y92.098 Other place in other non-institutional residence as the place of occurrence of the external cause; Y99.8 Other external cause status; Z88.1 Allergy status to other antibiotic agents
CPT/HCPCS: 23650; 36415; 70450; 71045; 76000; 80048; 80053; 80307; 82962; 83735; 85025; 85610; 96360; J2250; J2405; J2795; J3010; J3490; J0330; J2060; J3475; J7030

== ENCOUNTER 2017-10-30 16:18 | Emergency (ER) | payer MEDICAID ==
[~2017-10-30] VITALS: Ht 175.3 cm; Wt 78.0 kg
[~2017-10-30 16:18] MED LIST changes: -ONDANSETRON 2MG/ML, 2ML ONE; -SUCCINYLCHOLINE 20 MG/ML, 10ML ONE
[2017-10-30] MEDS ORDERED: METOPROLOL TARTRATE 25 MG TABLET PO ONE (17:00)
[2017-10-30] MEDS ORDERED: PLEASE ENTER HEIGHT AND WEIGHT MC SCH (17:00)
[2017-10-30] MEDS ORDERED: ONDANSETRON ODT 4 MG PO ONE (17:00)
[2017-10-30] MEDS ORDERED: KETOROLAC 30 MG/1 ML IM ONE (17:00)
[2017-10-30] MEDS ORDERED: ONDANSETRON ODT 8 MG ONE (17:06)
[2017-10-30] MEDS ORDERED: METOPROLOL TARTRATE 25 MG TABLET ONE (17:06)
[2017-10-30] MEDS ORDERED: KETOROLAC 30 MG/1 ML ONE (17:06)
[2017-10-30 19:27] VITALS: BP 124/65
[2017-10-31] MEDS ORDERED: LORA-445 PO (15:09)
== END 2017-10-30 19:29 | disposition home or self-care (01) ==
LOC: ED 18:50
DX: M19.012 Primary osteoarthritis, left shoulder (principal); F10.20 Alcohol dependence, uncomplicated; I10 Essential (primary) hypertension; R11.0 Nausea
CPT/HCPCS: 96372; 99283; J1885; Q0162

== ENCOUNTER 2017-10-31 05:37 | Inpatient (IN) | payer MEDICAID ==
[~2017-10-31] VITALS: Ht 177.8 cm; Wt 80.4 kg
[2017-10-31] MEDS ORDERED: LIDOCAINE 2%, 20ML SQ ONE (06:30)
[2017-10-31] MEDS ORDERED: LIDOCAINE-MPF 2% ,5ML ONE (06:59)
[2017-10-31 10:14] LABS: BASOPHILS # (AUTO) 0.04 x10^3/uL (0-0.1); BASOPHILS % (AUTO) 1 % (0-1); EOSINOPHILS # (AUTO) 0.05 x10^3/uL (0-0.4); EOSINOPHILS % (AUTO) 1 % (1-7); LYMPHOCYTES # (AUTO) 1.88 x10^3/uL (1-3.4); LYMPHOCYTES % (AUTO) 28 % (22-44); MD NO; MEAN CORPUSCULAR HEMOGLOBIN 29.9 pg (27.5-34.5); MEAN CORPUSCULAR HGB CONC 33.4 g/dL (33.2-36.2); MEAN CORPUSCULAR VOLUME 89.5 fL (81-97); MEAN PLATELET VOLUME 9.1 fL (7.4-10.4); MONOCYTES # (AUTO) 0.48 x10^3/uL (0.2-0.8); MONOCYTES % (AUTO) 7 % (2-9); NEUTROPHILS # (AUTO) 4.23 x10^3/uL (1.8-6.8); NEUTROPHILS % (AUTO) 63 % (42-75); PLATELET COUNT 360 x10^3/uL (130-400); RED CELL DISTRIBUTION WIDTH 15.5 % (9.4-14.8)
[2017-10-31 10:24] LABS: ALANINE AMINOTRANSFERASE 37 U/L (12-78); ALBUMIN 3.7 g/dL (3.4-5.0); ANION GAP 13 mmol/L (5-15); CHLORIDE 104 mmol/L (98-107)
[2017-10-31 10:27] LABS: ALKALINE PHOSPHATASE 135 U/L (45-117); BILIRUBIN,TOTAL 0.4 mg/dL (0.2-1.0); CREATININE 0.82 mg/dL (0.7-1.3); TOTAL PROTEIN 8.4 g/dL (6.4-8.2)
[2017-10-31 13:50] LABS: MICROSCOPIC NOT IND
[2017-10-31 13:55] LABS: CULTURE INDICATED? NO
[2017-10-31] MEDS ORDERED: LORA-445 PO (15:09)
[2017-10-31] MEDS: D5%-0.45NACL+KCL 20MEQ 1,000 ML IV SCH (15:09)
[2017-10-31] MEDS ORDERED: DOCUSATE 100 MG CAPSULE PO PRN (15:30)
[2017-10-31] MEDS ORDERED: POLYETHYLENE GLYCOL 17 GM PACKET PO PRN (15:30)
[2017-10-31] MEDS ORDERED: ONDANSETRON 2MG/ML, 2ML IVPush PRN (15:30)
[2017-10-31] MEDS ORDERED: BISACODYL 10 MG SUPP PR PRN (15:30)
[2017-10-31] MEDS ORDERED: LABETALOL 5MG/ML, 20ML IVPush PRN (15:30)
[2017-10-31 15:33] LABS: INTERNATIONAL NORMALIZED RATIO 1.04 (0.93-1.1); PROTHROMBIN TIME 10.7 Seconds (9.6-11.5)
[2017-10-31] MEDS: LORazepam 2 MG/ML, 1ML IVPush PRN ×2 (18:16→20:10)
[2017-10-31] MEDS: THIAMINE 100MG TABLET PO SCH (18:16)
[2017-10-31] MEDS: BACLOFEN 10 MG TABLET PO SCH ×2 (18:16→20:09)
[2017-10-31] MEDS: ACETAMINOPHEN 325 MG TABLET PO PRN (18:16)
[2017-10-31 18:23] VITALS: BP 132/79
[2017-10-31] MEDS: POTASSIUM CHLORIDE 20 MEQ, MAGNESIUM SULFATE 2 GM, MVI ADULT 10 ML, FOLIC ACID 1 MG in ... IV SCH (18:41)
[2017-10-31 19:50] VITALS: BP 139/79
[2017-10-31] MEDS: METOPROLOL TARTRATE 25 MG TABLET PO SCH (20:09)
[2017-11-01] VITALS: BP 136/75
[2017-11-01] MEDS: LORazepam 2 MG/ML, 1ML IVPush PRN ×5 (03:04→20:37)
[2017-11-01] MEDS: ACETAMINOPHEN 325 MG TABLET PO PRN ×4 (03:07→21:28)
[2017-11-01 04:00] VITALS: BP 127/77
[2017-11-01] MEDS: D5%-0.45NACL+KCL 20MEQ 1,000 ML IV SCH (05:58)
[2017-11-01 06:01] LABS: BASOPHILS # (AUTO) 0.03 x10^3/uL (0-0.1); BASOPHILS % (AUTO) 1 % (0-1); EOSINOPHILS # (AUTO) 0.07 x10^3/uL (0-0.4); EOSINOPHILS % (AUTO) 1 % (1-7); LYMPHOCYTES # (AUTO) 1.42 x10^3/uL (1-3.4); LYMPHOCYTES % (AUTO) 21 % (22-44); MD NO; MEAN CORPUSCULAR HEMOGLOBIN 28.6 pg (27.5-34.5); MEAN CORPUSCULAR VOLUME 89.5 fL (81-97); MEAN PLATELET VOLUME 8.9 fL (7.4-10.4); MONOCYTES # (AUTO) 0.69 x10^3/uL (0.2-0.8); MONOCYTES % (AUTO) 10 % (2-9); NEUTROPHILS # (AUTO) 4.49 x10^3/uL (1.8-6.8); NEUTROPHILS % (AUTO) 67 % (42-75); PLATELET COUNT 321 x10^3/uL (130-400); RED BLOOD COUNT 4.27 x10^6/uL (4.38-5.82); RED CELL DISTRIBUTION WIDTH 15.4 % (9.4-14.8)
[2017-11-01 06:20] LABS: ALANINE AMINOTRANSFERASE 27 U/L (12-78); ALBUMIN 3.1 g/dL (3.4-5.0); ANION GAP 9 mmol/L (5-15); CALCIUM 8.4 mg/dL (8.5-10.1); CHLORIDE 106 mmol/L (98-107); CREATININE 0.92 mg/dL (0.7-1.3)
[2017-11-01 06:22] LABS: ALKALINE PHOSPHATASE 112 U/L (45-117); BILIRUBIN,TOTAL 0.6 mg/dL (0.2-1.0); TOTAL PROTEIN 7.3 g/dL (6.4-8.2)
[2017-11-01 07:51] VITALS: BP 129/74
[2017-11-01] MEDS: THIAMINE 100MG TABLET PO SCH (09:15)
[2017-11-01] MEDS: NICOTINE 21 MG/24 HR PATCH.TD24 TD SCH (09:15)
[2017-11-01] MEDS: BACLOFEN 10 MG TABLET PO SCH ×3 (09:15→20:37)
[2017-11-01] MEDS: METOPROLOL TARTRATE 25 MG TABLET PO SCH ×2 (09:15→20:37)
[2017-11-01 13:24] VITALS: BP 94/55
[2017-11-01 18:59] VITALS: BP 129/75
[2017-11-01] MEDS: POTASSIUM CHLORIDE 20 MEQ, MAGNESIUM SULFATE 2 GM, MVI ADULT 10 ML, FOLIC ACID 1 MG in ... IV SCH (20:37)
[2017-11-02 01:45] VITALS: BP 158/84
[2017-11-02 05:54] LABS: BASOPHILS # (AUTO) 0.04 x10^3/uL (0-0.1); BASOPHILS % (AUTO) 1 % (0-1); EOSINOPHILS # (AUTO) 0.14 x10^3/uL (0-0.4); EOSINOPHILS % (AUTO) 3 % (1-7); LYMPHOCYTES # (AUTO) 1.81 x10^3/uL (1-3.4); LYMPHOCYTES % (AUTO) 34 % (22-44); MD NO; MEAN CORPUSCULAR HEMOGLOBIN 29.5 pg (27.5-34.5); MEAN CORPUSCULAR HGB CONC 32.9 g/dL (33.2-36.2); MEAN CORPUSCULAR VOLUME 89.5 fL (81-97); MEAN PLATELET VOLUME 9.3 fL (7.4-10.4); MONOCYTES # (AUTO) 0.58 x10^3/uL (0.2-0.8); MONOCYTES % (AUTO) 11 % (2-9); NEUTROPHILS # (AUTO) 2.72 x10^3/uL (1.8-6.8); NEUTROPHILS % (AUTO) 51 % (42-75); PLATELET COUNT 277 x10^3/uL (130-400); RED CELL DISTRIBUTION WIDTH 15.3 % (9.4-14.8)
[2017-11-02 05:59] LABS: ANION GAP 8 mmol/L (5-15); CALCIUM 8.8 mg/dL (8.5-10.1); CHLORIDE 110 mmol/L (98-107); CREATININE 0.79 mg/dL (0.7-1.3)
[2017-11-02 06:33] VITALS: BP 161/85
[2017-11-02] MEDS: METOPROLOL TARTRATE 25 MG TABLET PO SCH (07:51)
[2017-11-02] MEDS: BACLOFEN 10 MG TABLET PO SCH (07:51)
[2017-11-02] MEDS: ACETAMINOPHEN 325 MG TABLET PO PRN (07:52)
[2017-11-02] MEDS: THIAMINE 100MG TABLET PO SCH (07:52)
[2017-11-02] MEDS: NICOTINE 21 MG/24 HR PATCH.TD24 TD SCH (07:52)
[2017-11-02] MEDS: LORazepam 2 MG/ML, 1ML IVPush PRN (07:52)
== END 2017-11-02 14:18 | disposition home or self-care (01) | DRG 896 ==
LOC: ED 05:48 → EDIP 14:11 → 4EST 17:58 → DCLOUNGE 11-02 14:08
PROVIDERS: ADMIT Internal Medicine Pulmonary Disease; ATTEND Internal Medicine Pulmonary Disease
PROC: 0HQ1XZZ Repair Face Skin, External Approach (ICD-10-PCS; principal; 2017-10-31)
DX: F10.229 Alcohol dependence with intoxication, unspecified (principal); I62.03 Nontraumatic chronic subdural hemorrhage; E87.2 Acidosis; G93.89 Other specified disorders of brain; D63.8 Anemia in other chronic diseases classified elsewhere; E16.2 Hypoglycemia, unspecified; S01.01XA Laceration without foreign body of scalp, initial encounter; G51.0 Bell's palsy; I11.9 Hypertensive heart disease without heart failure; W18.30XA Fall on same level, unspecified, initial encounter; J01.00 Acute maxillary sinusitis, unspecified; R29.6 Repeated falls; S01.112A Laceration without foreign body of left eyelid and periocular area, initial encounter; S16.1XXA Strain of muscle, fascia and tendon at neck level, initial encounter; M19.90 Unspecified osteoarthritis, unspecified site; Z59.0 Homelessness; Z82.49 Family history of ischemic heart disease and other diseases of the circulatory system; Z87.891 Personal history of nicotine dependence; Z91.19 Patient's noncompliance with other medical treatment and regimen; Z91.81 History of falling; Z87.440 Personal history of urinary (tract) infections; Y93.89 Activity, other specified; Y92.89 Other specified places as the place of occurrence of the external cause
CPT/HCPCS: 36415; 70450; 70486; 70551; 72125; 80048; 80053; 80307; 81003; 82140; 85025; 85610; J3475; J3480; J3490; J7042; J2060

== ENCOUNTER 2017-11-05 18:49 | Emergency (ER) | payer MEDICAID ==
[~2017-11-05] VITALS: Ht 175.3 cm; Wt 77.2 kg
[~2017-11-05 18:49] MED LIST changes: +LORA-445 PO
[2017-11-05 18:51] VITALS: BP 117/74
[2017-11-05] MEDS ORDERED: ACETAMINOPHEN 325 MG TABLET ONE (19:08)
== END 2017-11-05 19:17 | disposition left against medical advice (07) ==
LOC: ED 19:11
DX: M25.512 Pain in left shoulder (principal); Z53.21 Procedure and treatment not carried out due to patient leaving prior to being seen by health care provider

== ENCOUNTER 2017-11-22 07:08 | Emergency (ER) | payer MEDICAID ==
[~2017-11-22] VITALS: Ht 175.3 cm; Wt 77.0 kg
[2017-11-22] MEDS ORDERED: THIAMINE 100MG TABLET PO ONE (07:30)
[2017-11-22] MEDS ORDERED: KETOROLAC 30 MG/1 ML ONE (07:34)
[2017-11-22] MEDS ORDERED: THIAMINE 100MG TABLET ONE (07:34)
[2017-11-22] MEDS ORDERED: KETOROLAC 30 MG/1 ML IM ONE (08:00)
[2017-11-22] MEDS ORDERED: KETOROLAC 30 MG/1 ML IVPush ONE (08:00)
[2017-11-22 11:20] VITALS: BP 158/87
== END 2017-11-22 11:23 | disposition home or self-care (01) ==
LOC: ED 08:01
DX: M25.512 Pain in left shoulder (principal); F10.220 Alcohol dependence with intoxication, uncomplicated; Z59.0 Homelessness
CPT/HCPCS: 73030; 96372; 99284; J1885

== ENCOUNTER 2017-12-07 08:42 | Emergency (ER) | payer MEDICAID ==
[~2017-12-07] VITALS: Ht 182.9 cm; Wt 85.0 kg
[2017-12-07 15:38] VITALS: BP 122/78
== END 2017-12-07 15:41 | disposition home or self-care (01) ==
LOC: ED 10:30
DX: F10.120 Alcohol abuse with intoxication, uncomplicated (principal); I10 Essential (primary) hypertension; G51.0 Bell's palsy; E83.42 Hypomagnesemia
CPT/HCPCS: 99283

== ENCOUNTER 2017-12-24 16:31 | Emergency (ER) | payer MEDICAID ==
[~2017-12-24] VITALS: Ht 177.8 cm; Wt 77.5 kg
[2017-12-25 03:22] VITALS: BP 136/88
== END 2017-12-25 03:23 | disposition home or self-care (01) ==
LOC: ED 18:31
DX: S09.90XA Unspecified injury of head, initial encounter (principal); F10.229 Alcohol dependence with intoxication, unspecified; I10 Essential (primary) hypertension; W19.XXXA Unspecified fall, initial encounter; Y93.89 Activity, other specified; Y99.8 Other external cause status; Y92.410 Unspecified street and highway as the place of occurrence of the external cause
CPT/HCPCS: 70450; 99284

== ENCOUNTER 2019-02-10 15:18 | Emergency (ER) | payer MEDICAID ==
[~2019-02-10] VITALS: Ht 177.8 cm; Wt 79.9 kg
[~2019-02-10 15:18] MED LIST changes: +SENN-177 PO; -SENN1TAB7 PO; -THIA100T6 PO; +THIA100T67 PO
--- NOTE | 2019-02-10 15:38 | NUR ---
pt placed in bed. pt is visible from nursing station. call light in reach and pt encouraged to call rn for any wants or needs.
--- NOTE | 2019-02-10 16:43 | NUR ---
pt in room, visible from nursing station. resps even and unlabored. pt restin in bed. call light in reach and pt encouraged to call before attempting to get out of bed.
[2019-02-10 17:35] VITALS: BP 97/56
== END 2019-02-10 17:37 ==
LOC: ED 17:36
DX: F10.220 Alcohol dependence with intoxication, uncomplicated (principal); I10 Essential (primary) hypertension
CPT/HCPCS: 99283

== ENCOUNTER 2019-02-11 19:07 | Emergency (ER) | payer SELFPAY ==
[~2019-02-11] VITALS: Ht 172.7 cm; Wt 85.0 kg
[2019-02-11 19:08] VITALS: BP 126/87
[2019-02-11] MEDS ORDERED: IBUPROFEN 200 MG TABLET ONE (19:53)
--- NOTE | 2019-02-11 19:59 | NUR ---
PT MEDICATED PER EMAR FOR PAIN. PT AMBULATORY AND DRESSED APPROPRIATELY FOR WEATHER. PT TRANSFERED SELF TO WHEELCHAIR. WHEELED TO DC.
[2019-02-11] MEDS ORDERED: IBUPROFEN 600 MG TABLET PO ONE (20:00)
== END 2019-02-11 20:01 | disposition home or self-care (01) ==
LOC: ED 19:50
DX: F10.120 Alcohol abuse with intoxication, uncomplicated (principal); M79.661 Pain in right lower leg; I10 Essential (primary) hypertension; Z72.9 Problem related to lifestyle, unspecified; F17.200 Nicotine dependence, unspecified, uncomplicated
CPT/HCPCS: 99283

== ENCOUNTER 2019-02-17 05:41 | Emergency (ER) | payer MEDICAID ==
[~2019-02-17] VITALS: Ht 180.3 cm; Wt 87.0 kg
[2019-02-17] MEDS ORDERED: KETOROLAC 30 MG/1 ML ONE (05:58)
[2019-02-17] MEDS ORDERED: KETOROLAC 30 MG/1 ML IM ONE (06:00)
--- NOTE | 2019-02-17 06:05 | NUR ---
assessment made. Seen by erp. medicated for pain. hx of arthritis.
--- NOTE | 2019-02-17 06:25 | NUR ---
patient sleeping, respiration unlabored. will continue to monitor.
--- NOTE | 2019-02-17 06:45 | NUR ---
Report from Ion PAN.
--- NOTE | 2019-02-17 06:48 | NUR ---
report to VIVIANE Redding.
--- NOTE | 2019-02-17 07:01 | NUR ---
Pt resting in bed with eyes closed, resp even and unlabored, NADN.
--- NOTE | 2019-02-17 07:27 | NUR ---
Pt continues resting in bed, NADN.
--- NOTE | 2019-02-17 08:33 | NUR ---
Pt continues resting in bed, NADN.
--- NOTE | 2019-02-17 09:45 | NUR ---
This RN attempted to assist the pt to sit up and stand. Pt able to sit up, unable to ambulate steadily. Pt assisted back to bed, positioned for comfort, denies other needs.
--- NOTE | 2019-02-17 10:29 | NUR ---
Pt continues resting in bed, NADN.
[2019-02-17 10:54] VITALS: BP 135/84
--- NOTE | 2019-02-17 11:26 | NUR ---
Pt shouting in room. This RN entered room and asked the pt if he needed help. Pt yelling at this RN, sitting up in bed. Pt yelling "I need to go back to my room god dammit!" This RN advised pt that he was previously unable to ambulate with a steady gait and was sleeping. Pt continues yelling at this RN, standing up from bed. Pt ambulatory around room with steady gait, continues yelling. Dr. Otero updated on this, ok for pt discharge. Security called to escort pt off property.
== END 2019-02-17 11:30 | disposition home or self-care (01) ==
LOC: ED 06:50
DX: F10.120 Alcohol abuse with intoxication, uncomplicated (principal); Z71.41 Alcohol abuse counseling and surveillance of alcoholic; F17.210 Nicotine dependence, cigarettes, uncomplicated; I10 Essential (primary) hypertension
CPT/HCPCS: 96372; 99283; 99406; J1885

== ENCOUNTER 2019-02-17 22:17 | Emergency (ER) | payer MEDICAID ==
[~2019-02-17] VITALS: Ht 177.8 cm; Wt 87.0 kg
[2019-02-17 22:19] VITALS: BP 121/69
--- NOTE | 2019-02-17 23:15 | NUR ---
PT SLEEPING WITH NO COMPLAINTS
--- NOTE | 2019-02-18 00:26 | NUR ---
PT RESTING, ROUSABLE TO VOICE, ORIENTED WHEN AWAKE, NO COMPLAINTS
--- NOTE | 2019-02-18 01:50 | NUR ---
PT STILL UNABLE TO AMBULATE, UP WITH RN, NO COMPLAINTS
--- NOTE | 2019-02-18 03:45 | NUR ---
PT RESTING, ROUSABLE TO VOICE, ORIENTED WHEN AWAKE, NO COMPLAINTS
--- NOTE | 2019-02-18 04:27 | NUR ---
Patient/Caregiver given discharge instructions and they have confirmed that they understand the instructions. Patient ambulatory with steady gait.
== END 2019-02-18 04:28 | disposition home or self-care (01) ==
LOC: ED 23:25
DX: F10.220 Alcohol dependence with intoxication, uncomplicated (principal); Z72.9 Problem related to lifestyle, unspecified; I10 Essential (primary) hypertension
CPT/HCPCS: 99283

== ENCOUNTER 2019-02-19 19:12 | Emergency (ER) | payer MEDICAID ==
[~2019-02-19] VITALS: Ht 180.3 cm; Wt 84.0 kg
[2019-02-19 20:09] LABS: ALANINE AMINOTRANSFERASE 33 U/L (12-78); ALBUMIN 3.5 g/dL (3.4-5.0); ANION GAP 12 mmol/L (5-15); CALCIUM 9.1 mg/dL (8.5-10.1); CHLORIDE 105 mmol/L (98-107); CREATININE 1.36 mg/dL (0.7-1.3)
[2019-02-19 20:10] LABS: ALKALINE PHOSPHATASE 107 U/L (45-117); BASOPHILS # (AUTO) 0.03 x10^3/uL (0-0.1); BASOPHILS % (AUTO) 1 % (0-1); BILIRUBIN,TOTAL 0.2 mg/dL (0.2-1.0); EOSINOPHILS # (AUTO) 0.08 x10^3/uL (0-0.4); EOSINOPHILS % (AUTO) 2 % (1-7); LYMPHOCYTES # (AUTO) 1.58 x10^3/uL (1-3.4); LYMPHOCYTES % (AUTO) 31 % (22-44); MD NO; MEAN CORPUSCULAR HEMOGLOBIN 29.4 pg (27.5-34.5); MEAN CORPUSCULAR HGB CONC 32.5 g/dL (33.2-36.2); MEAN CORPUSCULAR VOLUME 90.5 fL (81-97); MEAN PLATELET VOLUME 8.6 fL (7.4-10.4); MONOCYTES # (AUTO) 0.59 x10^3/uL (0.2-0.8); MONOCYTES % (AUTO) 12 % (2-9); NEUTROPHILS # (AUTO) 2.81 x10^3/uL (1.8-6.8); NEUTROPHILS % (AUTO) 55 % (42-75); PLATELET COUNT 306 x10^3/uL (130-400); RED BLOOD COUNT 4.24 x10^6/uL (4.38-5.82); RED CELL DISTRIBUTION WIDTH 15.2 % (9.4-14.8); TOTAL PROTEIN 7.3 g/dL (6.4-8.2)
--- NOTE | 2019-02-19 20:28 | NUR ---
ASSUMED CARE OF PT AT THIS TIME. THIS IS A 63 YO MALE C/O "I'M DETOXING FROM ALCOHOL PRETTY BAD AND MY FEET HURT FROM WALKING". PT ALSO HAS A RASH TO BILAT HANDS AND ACROSS BRIDGE OF NOSE. PT ANSWERS QUESTIONS APPROPRIATELY. SLURRED SPEECH NOTED. NO TREMORS NOTED BY RN. PT ON CONT O2 MONITORS. CALL LIGHT WITHIN REACH. WILL CONT TO MONITOR PT.
[2019-02-19] MEDS ORDERED: LORazepam 0.5MG TABLET ONE (20:42)
[2019-02-19] MEDS ORDERED: MUPIROCIN OINT 2%, 22GM TP ONE (21:00)
[2019-02-19] MEDS ORDERED: LORazepam 0.5MG TABLET PO ONE (21:00)
--- NOTE | 2019-02-19 21:24 | NUR ---
PT MEDICATED ORDERED FOR WITHDRAWAL AND IS NOW SLEEPING ON [employer]. PT AWAKENS EASILY TO NAME BEING CALLED. PT APPEARS TO BE RESTING COMFORTABLY, WAS PROVIDED WITH BLANKET AND POSITIONED FOR COMFORT. PT ON CONT O2 MONITORS. CALL LIGHT WITHIN REACH. WILL CONT TO MONITOR PT.-
--- NOTE | 2019-02-19 22:04 | NUR ---
REPORT FROM VIVIANE HESTER
--- NOTE | 2019-02-19 22:10 | NUR ---
REPORT TO VIVIANE ADHIKARI WHO ASSUMED CARE OF PT.
--- NOTE | 2019-02-19 22:11 | NUR ---
PT RESTING IN GURNEY W/ EYES CLOSED. EVEN/REGULAR RESPIRATIONS NOTED. SPO2 >90% ON RA. CHART UP FOR RECHECK
[2019-02-19 22:12] VITALS: BP 105/50
--- NOTE | 2019-02-19 22:36 | NUR ---
PT PROVIDED CLEAN T-SHIRT AND ASSISTED TO DRESS. PT A&OX4 AND AMBULATORY FROM GURNEY TO WHEELCHAIR. PT PROVIDED DC INSTRUCTIONS AND RESOURCES INCLUDING CARE CHEST TO ASSIST W/ FILLING RX. PT WHEELED TO DC WITH RN.
== END 2019-02-19 22:39 | disposition home or self-care (01) ==
LOC: ED 20:36
DX: L03.113 Cellulitis of right upper limb (principal); L01.01 Non-bullous impetigo; Z72.9 Problem related to lifestyle, unspecified
CPT/HCPCS: 36415; 80053; 85025; 99283

== ENCOUNTER 2019-02-25 06:21 | Emergency (ER) | payer MEDICAID ==
[~2019-02-25] VITALS: Ht 177.8 cm; Wt 80.0 kg
--- NOTE | 2019-02-25 08:09 | NUR ---
to room at this time.
--- NOTE | 2019-02-25 08:25 | NUR ---
PT BROUGHT TO ED LOBBY VIA [facility], PER PT REPORT HE FELL D/T "LOSING HIS FOOTING" PT STATES HE DOES CURRENTLY HAVE A MARTINS, HE IS NOT SURE IF HE HIT HIS HEAD WHEN HE FELL. PT DENIES CP, SOB, N/V. PT ON NIBP, CONT PULSE OX, ERMD IN TO EVAL PT, PT TO GO FOR HEAD CT.
--- NOTE | 2019-02-25 09:13 | NUR ---
PT BACK FROM CT, RESTING ON JOSEPH GUERRA AT THIS TIME.
[2019-02-25 09:14] VITALS: BP 149/74
--- NOTE | 2019-02-25 09:35 | NUR ---
PT GIVEN DISCHARGE INSTRUCTION, PT ESCORTED VIA STAFF IN WHEELCHAIR TO CHECKOUT WITH ALL BELONGINGS Addendum: 02/25/19 at 1008 by BREONNA IRA DUBOIS
== END 2019-02-25 10:10 | disposition home or self-care (01) ==
LOC: ED 08:46
DX: S09.8XXA Other specified injuries of head, initial encounter (principal); M25.512 Pain in left shoulder; F10.20 Alcohol dependence, uncomplicated; Z72.9 Problem related to lifestyle, unspecified; I10 Essential (primary) hypertension; W01.0XXA Fall on same level from slipping, tripping and stumbling without subsequent striking against object, initial encounter; Y93.89 Activity, other specified; Y92.89 Other specified places as the place of occurrence of the external cause; Y99.8 Other external cause status
CPT/HCPCS: 70450; 82962; 99284

== ENCOUNTER 2019-02-26 07:30 | Emergency (ER) | payer MEDICAID ==
[~2019-02-26] VITALS: Ht 177.8 cm; Wt 86.4 kg
--- NOTE | 2019-02-26 08:29 | NUR ---
pt showered, refused to have feet scrubbed d/t pain. eating breakfast
[2019-02-26 09:34] VITALS: BP 143/76
== END 2019-02-26 09:37 | disposition home or self-care (01) ==
LOC: ED 08:49
DX: G89.29 Other chronic pain (principal); M79.661 Pain in right lower leg; Z72.9 Problem related to lifestyle, unspecified; I10 Essential (primary) hypertension
CPT/HCPCS: 99283

== ENCOUNTER 2019-03-07 22:03 | Emergency (ER) | payer MEDICAID ==
[~2019-03-07] VITALS: Ht 167.6 cm; Wt 80.0 kg
[2019-03-07 23:03] LABS: ALANINE AMINOTRANSFERASE 41 U/L (12-78); ALBUMIN 3.5 g/dL (3.4-5.0); ANION GAP 12 mmol/L (5-15); CALCIUM 8.8 mg/dL (8.5-10.1); CHLORIDE 93 mmol/L (98-107); CREATININE 0.67 mg/dL (0.7-1.3)
[2019-03-07 23:04] LABS: MEAN CORPUSCULAR HEMOGLOBIN 30.3 pg (27.5-34.5); MEAN CORPUSCULAR HGB CONC 32.6 g/dL (33.2-36.2); MEAN PLATELET VOLUME 8.4 fL (7.4-10.4); PLATELET COUNT 294 x10^3/uL (130-400); RED BLOOD COUNT 4.29 x10^6/uL (4.38-5.82); RED CELL DISTRIBUTION WIDTH 16.5 % (9.4-14.8)
[2019-03-07 23:07] LABS: ALKALINE PHOSPHATASE 98 U/L (45-117); BILIRUBIN,TOTAL 0.7 mg/dL (0.2-1.0); TOTAL PROTEIN 7.5 g/dL (6.4-8.2); TROPONIN I 0.024 ng/mL (0.000-0.045)
[2019-03-07] MEDS ORDERED: SODIUM CHLORIDE FLUSH 10ML SYR IVF ONE (23:30)
[2019-03-07] MEDS ORDERED: THIAMINE 100MG TABLET PO ONE (23:30)
[2019-03-07] MEDS ORDERED: SODIUM CHLORIDE 0.9% 1,000ML IVBOLUS ONE (23:30)
[2019-03-07 23:33] LABS: BASOPHILS # (AUTO) 0.02 x10^3/uL (0-0.1); BASOPHILS % (AUTO) 0 % (0-1); EOSINOPHILS # (AUTO) 0.09 x10^3/uL (0-0.4); EOSINOPHILS % (AUTO) 2 % (1-7); LYMPHOCYTES # (AUTO) 1.18 x10^3/uL (1-3.4); LYMPHOCYTES % (AUTO) 24 % (22-44); MD SCAN; MONOCYTES # (AUTO) 0.56 x10^3/uL (0.2-0.8); MONOCYTES % (AUTO) 11 % (2-9); NEUTROPHILS # (AUTO) 3.18 x10^3/uL (1.8-6.8); NEUTROPHILS % (AUTO) 63 % (42-75)
[2019-03-07] MEDS ORDERED: LISI-167 PO (23:37)
--- NOTE | 2019-03-07 23:39 | NUR ---
IV STARTED. POC DISCUSSED. PT GIVEN CRACKERS PER REQUEST. CALL LIGHT ON LAP. FALL PRECAUTIONS IN PLACE
[2019-03-08] MEDS ORDERED: THIAMINE 100MG TABLET ONE
[2019-03-08] MEDS ORDERED: LORazepam 1MG TABLET PO ONE
[2019-03-08] MEDS ORDERED: LORazepam 1MG TABLET ONE
--- NOTE | 2019-03-08 00:03 | NUR ---
PA STATES PT IS WITHDRAWLING AND SHAKY. PA STATES TO MEDICATE WITH ATIVAN 1MG PO. UPON ENTERING ROOM PT SLEEPING. PT AWOKEN AND NON TREMULOUS. PA STILL WANTS DIRECTOR OF ADULT EPILEPSY. MEDS ADMIN PER NOV. POC DISCUSSED. PT DENIES FURTHER NEEDS AT THIS TIME.
[2019-03-08 01:17] VITALS: BP 135/74
--- NOTE | 2019-03-08 01:18 | NUR ---
PT GIVEN DC INSTRUCTIONS ALL QUESTIONS ANSWERED. AT THIS TIME PT GETTING DRESSED, SLOWLY.
== END 2019-03-08 02:24 | disposition home or self-care (01) ==
LOC: ED 23:23
DX: E86.0 Dehydration (principal); E87.1 Hypo-osmolality and hyponatremia; R42 Dizziness and giddiness; F17.200 Nicotine dependence, unspecified, uncomplicated; I10 Essential (primary) hypertension; Z72.9 Problem related to lifestyle, unspecified
CPT/HCPCS: 36415; 70450; 71045; 80053; 80307; 83880; 84484; 85025; 93005; 96360; 99284; J7030

== ENCOUNTER 2019-03-08 11:54 | Emergency (ER) | payer MEDICAID ==
[~2019-03-08] VITALS: Ht 177.8 cm; Wt 86.0 kg
[~2019-03-08 11:54] MED LIST changes: +LISI-167 PO
--- NOTE | 2019-03-08 11:55 | NUR ---
BIB BY EMS FOR MECHANICAL FALL. VS STABLE IN ROUTE. EMS STATES PT WAS HERE LAST NIGHT FOR HTN. PT DENIES DRINKING.
--- NOTE | 2019-03-08 12:40 | NUR ---
Callum gonzalez in [facility] - 03/08/[address] alicia at [facility] seen pt
[2019-03-08 12:42] VITALS: BP 154/86
--- NOTE | 2019-03-08 12:47 | NUR ---
pt came back from imaging
--- NOTE | 2019-03-08 13:09 | NUR ---
DPatient/Caregiver given discharge instructions and they have confirmed that they understand the instructions. Patient ambulatory with steady gait.
== END 2019-03-08 13:50 | disposition home or self-care (01) ==
LOC: ED 13:30
DX: S00.81XA Abrasion of other part of head, initial encounter (principal); S09.90XA Unspecified injury of head, initial encounter; I10 Essential (primary) hypertension; X58.XXXA Exposure to other specified factors, initial encounter; Y93.89 Activity, other specified; Y92.410 Unspecified street and highway as the place of occurrence of the external cause; Y99.8 Other external cause status
CPT/HCPCS: 70450; 93005; 99284

== ENCOUNTER 2019-03-15 03:01 | Emergency (ER) | payer MEDICAID ==
[~2019-03-15] VITALS: Ht 180.3 cm; Wt 86.0 kg
--- NOTE | 2019-03-15 03:20 | NUR ---
brianda. report received from ems. +etoh. pt was sleeping at sidewalk. pt's aox4. denies any pain. bp/spo2 monitors in place. call light within reach. pa at bedside to evaluate at this time.
--- NOTE | 2019-03-15 03:21 | NUR ---
bs 86 now.
--- NOTE | 2019-03-15 04:17 | NUR ---
pt sleeping in [facility]. resps even and unlabored. bp/spo2 monitors in place. call light within reach.
--- NOTE | 2019-03-15 05:18 | NUR ---
pt sleeping in [facility]. resps even and unlabored. bp/spo2 monitors in place. call light within reach.
--- NOTE | 2019-03-15 06:09 | NUR ---
PT WAS NOT ABLE TO STAND UP AT THIS TIME.
--- NOTE | 2019-03-15 06:56 | NUR ---
REPORT RECIEVED FROM MARCELLA
--- NOTE | 2019-03-15 06:57 | NUR ---
REPORT GIVEN TO HAVEN PAN.
--- NOTE | 2019-03-15 07:13 | NUR ---
PT ASLEEP IN [facility]. CALL LIGHT IN REACH.
--- NOTE | 2019-03-15 08:33 | NUR ---
PT ASLEEP IN [facility]. CALL LIGHT IN REACH.
--- NOTE | 2019-03-15 08:53 | NUR ---
REPORT FROM VIVIANE MCNULTY AND VIVIANE SCHRADER. ASSUMED CARE OF PATIENT AT THIS TIME, MONITORS IN PLACE, PATIENT SLEEPING IN [place], VISIBLE CHEST RISE AND FALL. NO ADDITIONAL NEEDS AT THIS TIME.
--- NOTE | 2019-03-15 09:53 | NUR ---
PATIENT SLEEPING IN GURNEY, RESP EVEN UNLABORED, NADN. VS UPDATED IN CHART.
--- NOTE | 2019-03-15 10:14 | NUR ---
PER ERP, IF PATIENT ABLE TO AMBULATE BY SELF, PATIENT CAN BE SAFE DC HOME. PATIENT HOMELESS, DELEGATED TO EMT TO FIND CLOTHES FOR PATIENT, AWAITING CLOTHES AT THIS TIME TO CLEAN PATIENT UP TO ATTEMPT AMBULATION.
--- NOTE | 2019-03-15 10:58 | NUR ---
PATIENT INCONTINENT TO URINE AND STOOL, CLEANED PATIENT UP, NEW LINENS AND GOWN. PATIENT UNABLE TO AMBULATED BY SELF WITH WALKER AT THIS TIME, NADN. KNOTT AWARE. MTF. VS UPDATED IN CHART.
--- NOTE | 2019-03-15 11:44 | NUR ---
PATIENT SLEEPING IN GURNEY, RESP EVEN UNLABORED, CANDY.
--- NOTE | 2019-03-15 12:58 | NUR ---
PATIENT AMB WITH WALKER WITH STEADY GAIT BY EMT, AWARE, AWAITING FURTHER ORDERS. CANDY.
--- NOTE | 2019-03-15 13:44 | NUR ---
Patient/Caregiver given discharge instructions and they have confirmed that they understand the instructions. Patient ambulatory with steady gait with walker to DC desk, patient homeless, resources given to patient.
[2019-03-15 13:47] VITALS: BP 119/59
== END 2019-03-15 13:47 | disposition home or self-care (01) ==
LOC: ED 03:08
DX: F10.220 Alcohol dependence with intoxication, uncomplicated (principal); I10 Essential (primary) hypertension
CPT/HCPCS: 99283

== ENCOUNTER 2019-03-19 08:43 | Emergency (ER) | payer MEDICAID ==
[~2019-03-19] VITALS: Ht 177.8 cm; Wt 87.0 kg
--- NOTE | 2019-03-19 08:59 | NUR ---
NED GUILLAUME AMBASSADOR.
--- NOTE | 2019-03-19 09:08 | NUR ---
PT BIB [facility]. PT ON SERIAL VS. NAD.
--- NOTE | 2019-03-19 09:15 | NUR ---
DISCUSSED POC WITH PT AND MD. EVERYONE AGREEABLE TO POC. PT WAS ALDO COUCH AND STATES "IT WASN'T MY IDEA TO COME HERE, BUT I FIGURED IT COULDN'T HURT". PT REPORTS THAT HE DRINKS EVERYDAY BUT CAN'T TELL ME HOW MUCH.
[2019-03-19 10:01] VITALS: BP 154/81
--- NOTE | 2019-03-19 10:10 | NUR ---
Patient given discharge instructions and they have confirmed that they understand the instructions. Pt given a taxi voucher.
== END 2019-03-19 10:12 | disposition home or self-care (01) ==
LOC: ED 09:30
DX: R60.0 Localized edema (principal); B35.1 Tinea unguium; I10 Essential (primary) hypertension; M19.90 Unspecified osteoarthritis, unspecified site; Z87.891 Personal history of nicotine dependence; Z88.1 Allergy status to other antibiotic agents
CPT/HCPCS: 99283

== ENCOUNTER 2020-01-30 01:14 | Emergency (ER) | payer MEDICAID ==
[~2020-01-30] VITALS: Ht 175.3 cm; Wt 85.0 kg
[~2020-01-30 01:14] MED LIST changes: +CARV6.2512 PO; +HYDR-3246 PO; -HYDR-3307 PO; -PANT40TA5 PO; +PANT40TA6 PO
[2020-01-30 01:19] VITALS: BP 170/90
[2020-01-30] MEDS ORDERED: hydrOXyzine 50MG TABLET ONE (01:46)
== END 2020-01-30 01:52 | disposition home or self-care (01) ==
LOC: ED 01:30
DX: L29.9 Pruritus, unspecified (principal); I10 Essential (primary) hypertension; F17.210 Nicotine dependence, cigarettes, uncomplicated; Z72.9 Problem related to lifestyle, unspecified
CPT/HCPCS: 99283; 99406; Q0177

== ENCOUNTER 2020-02-08 20:05 | Emergency (ER) | payer MEDICAID ==
[~2020-02-08] VITALS: Ht 180.3 cm; Wt 82.0 kg
[~2020-02-08 20:05] MED LIST changes: +PANT40TA5 PO; -PANT40TA6 PO
[2020-02-08 20:08] VITALS: BP 120/75
--- NOTE | 2020-02-08 20:15 | NUR ---
Pt here for body lice, called ems for transport.
--- NOTE | 2020-02-08 21:20 | NUR ---
Pt given atarax and dc.
--- NOTE | 2020-02-08 21:20 | NUR ---
Patient/Caregiver given discharge instructions and they have confirmed that they understand the instructions. Patient ambulatory with steady gait.
== END 2020-02-08 22:48 | disposition home or self-care (01) ==
LOC: ED 22:32
DX: B85.1 Pediculosis due to Pediculus humanus corporis (principal); F17.210 Nicotine dependence, cigarettes, uncomplicated; I10 Essential (primary) hypertension; E83.42 Hypomagnesemia; E87.1 Hypo-osmolality and hyponatremia
CPT/HCPCS: 99285; 99406; Q0177